=== PATIENT | male | born 1955 | race Caucasian/White ===

== ENCOUNTER 2019-11-17 13:20 | Inpatient (IN) | payer OTHER ==
--- NOTE | 2019-11-17 13:33 | PDOC ---
Rapid Medical Evaluation Time Seen by Provider: 11/17/19 13:29 Medical Evaluation: Allergies Allergy/AdvReac Type Severity Reaction Status Date / Time No Known Drug Allergies Allergy Verified 09/05/17 09:17 11/17/19 13:29 HPI: 64 year old male with pmhx of [place] CHF DM presenting from PCP to be admitted for IV lasix for CHF exacerbation. Pt complaining of SOB, abnormal chest XR at PCP PE: RRR CTA A/P: Labs EKG Chest XR Pt to precede to ED for further evaluation and treatment.
[2019-11-17 15:41] LABS: BASO % 1.4 % (0-2.0); EOS % 3.1 % (0-4.5); HEMATOCRIT 34.9 % (35.4-49); HEMOGLOBIN 11.2 GM/dL (11.7-16.9); LYMPH % 20.5 % (8-40); MCH 27.1 pg (25.7-33.7); MEAN CELL VOLUME 84.9 fl (80-96); MEAN PLT VOLUME 7.6 fl (7.5-11.1); MONO % 9.3 % (3.8-10.2); NEUT % 65.7 % (42.8-82.8); PLATELET COUNT 256 K/MM3 (134-434); RBC 4.12 M/mm3 (4.00-5.60); RDW 16.6 % (11.9-15.9); WHITE BLOOD COUNT 7.3 K/mm3 (4.0-10.0)
--- NOTE | 2019-11-17 15:44 | PDOC ---
Documentation entered by Etienne Samuel SCRIBE, acting as scribe for Reina Fair MD. Reina Fair MD: This documentation has been prepared by the taraibe, Etienne Samuel SCRIBE, under my direction and personally reviewed by me in its entirety. I confirm that the documentation accurately reflects all work, treatment, procedures, and medical decision making performed by me. Attending Attestation - Resident Resident Name: Roel Leach - ED Attending Attestation I have performed the following: I have examined & evaluated the patient, The case was reviewed & discussed with the resident, I agree w/resident's findings & plan, Exceptions are as noted - HPI HPI: 11/17/19 16:14 The patient is a 64 year old male with a significant past medical history of Afib (on Warfarin), [place], CHF, HTN, HLD, DM, and lumbar stenosis who presents to the emergency department, sent from PCP, for evaluation of intermittent shortness of breath for the past two years with a worsened episode that began 7 days ago and abnormal chest x ray taken today at PCP. The patient endorses orthopnea and bilateral lower extremity swelling. He notes his shortness of breath is improved with rest. Per PCP, this patient is to be admitted for IV lasix for CHF exacerbation. Allergies: NKDA PCP: Dr. Leonardo - Physicial Exam PE: 11/17/19 15:29 GENERAL: Awake, alert, and fully oriented, in no acute distress HEAD: No signs of trauma EYES: PERRLA, EOMI, sclera anicteric, conjunctiva clear ENT: Auricles normal inspection, hearing grossly normal, nares patent, oropharynx clear without exudates. Moist mucosa NECK: Normal ROM, supple, no lymphadenopathy, JVD, or masses LUNGS: Breath sounds equal, clear to auscultation bilaterally. No wheezes, and no crackles HEART: Regular rate and rhythm, normal S1 and S2, no murmurs, rubs or gallops ABDOMEN: Soft, nontender, normoactive bowel sounds. No guarding, no rebound. No masses EXTREMITIES: Normal range of motion, 4+ pitting edema to BLE. No clubbing or cyanosis. No cords, erythema, or tenderness NEUROLOGICAL: Cranial nerves II through XII grossly intact. Normal speech, normal gait SKIN: Warm, Dry, normal turgor, no rashes or lesions noted. - Medical Decision Making 11/17/19 16:32 Pt presents with CHF exacerbation. D/w Dr. Leonardo prior to patient arrival. Will diurese and plan for admission. Discharge - Discharge Information Problems reviewed: Yes Clinical Impression/Diagnosis: CHF exacerbation Qualifiers: Heart failure type: unspecified Qualified Code(s): I50.9 - Heart failure, unspecified Condition: Stable - Admission Yes - Follow up/Referral Referrals: Jennifer Leonardo MD [Primary Care Provider] - - Patient Discharge Instructions - Post Discharge Activity
[2019-11-17 15:53] LABS: INR 3.42 (0.83-1.09); PROTHROMBIN TIME (PATIENT) 40.9 SEC (9.7-13.0)
[2019-11-17 15:56] LABS: ACTIVATED PTT 47.6 SECONDS (25.2-36.5)
[2019-11-17 16:10] LABS: ALBUMIN 3.2 g/dl (3.4-5.0); ALK PHOS 107 U/L (45-117); ANION GAP 6 MMOL/L (8-16); BILIRUBIN,TOTAL 0.7 mg/dL (0.2-1); BLOOD UREA NITROGEN 15.4 mg/dL (7-18); CALCIUM 8.2 mg/dL (8.5-10.1); CHLORIDE 104 mmol/L (98-107); CO2 29 mmol/L (21-32); CREATININE 1.3 mg/dL (0.55-1.3); GLUCOSE,RANDOM 165 mg/dL (74-106); N-TERMINAL BNP 910.3 pg/ml (5-125); POTASSIUM 3.6 mmol/L (3.5-5.1); SGOT/AST 16 U/L (15-37); SGPT/ALT 14 U/L (13-61); SODIUM 140 mmol/L (136-145); TOT PROT 7.9 g/dl (6.4-8.2)
--- NOTE | 2019-11-17 16:14 | PDOC ---
History of Present Illness - General Chief Complaint: Shortness of Breath Stated Complaint: SENT BY PCP Time Seen by Provider: 11/17/19 13:29 - History of Present Illness Initial Comments: HPI 64 yo M with PMH of [place] (in 2015, s/p stent), CHF, HTN, HLD, NIDDM, AFib (since 2008, on warfarin), and lumbar stenosis presenting to the ED from his PCP's office for evaluation of worsening SOB on exertion and bilateral lower extremity swelling over the past week. CXR at PCP's office showed congestive changes. He has had an echocardiogram done this year but does not recall the results. He reports that the SOB on exertion and lower extremity edema has been intermittently present for the last 2 years. Also endorses orthopnea. Denies SOB at rest, chest pain, PND, cough, abdominal pain, fever, chills, nausea, vomiting, diarrhea, constipation, and urinary changes. PMHX: as in HPI PSHX: as in HPI Meds: -lisonopril 40 mg daily -bumetanide 2 mg bid -metformin 500 mg daily -warfarin 5 mg + 1 mg daily -metoprolol succinate er 100 mg daily -nitroglycerin 0.4 mg SL prn Allergies: NKDA Tob: denies Etoh: denies Rec drugs: denies PCP: Dr. Malissa ROBLEDO GENERAL/CONSTITUTIONAL: No fever or chills. No weakness. HEAD, EYES, EARS, NOSE AND THROAT: No change in vision. No ear pain or discharge. No sore throat. CARDIOVASCULAR: No chest pain. No SOB at rest. + SOB on exertion. RESPIRATORY: No cough, wheezing, or hemoptysis. GASTROINTESTINAL: No nausea, vomiting, diarrhea or constipation. GENITOURINARY: No dysuria, frequency, or change in urination. MUSCULOSKELETAL: No joint or muscle swelling or pain. No neck pain. + Chronic lower back pain. SKIN: No rash NEUROLOGIC: No headache, vertigo, loss of consciousness, or change in stre ngth/sensation. ENDOCRINE: No increased thirst. No abnormal weight change HEMATOLOGIC/LYMPHATIC: No anemia, easy bleeding, or history of blood clots. ALLERGIC/IMMUNOLOGIC: No hives or skin allergy. PE GENERAL: Awake, alert, and fully oriented, in no acute distress. Breathing comfortably on RA. HEAD: No signs of trauma, normocephalic, atraumatic EYES: PERRLA, EOMI, sclera anicteric, conjunctiva clear ENT: Auricles normal inspection, hearing grossly normal, nares patent, oropharynx clear without exudates. Moist mucus membranes. NECK: Normal ROM, supple, no lymphadenopathy, JVD, or masses LUNGS: No distress, speaks full sentences; crackles at bilateral lung bases. No wheezing. No accessory muscle use. HEART: irregular rate and regular rhythm, normal S1 and S2, no murmurs, rubs or gallops, peripheral pulses normal and equal bilaterally. ABDOMEN: Soft, nontender, normoactive bowel sounds. No guarding, no rebound. No masses EXTREMITIES : Normal inspection, moving all extremities equally and spontaneously. 2+ pitting edema of b/l lower extremities. NEUROLOGICAL: Normal speech, normal gait, no focal sensorimotor deficits SKIN: Warm, Dry, normal turgor, no rashes or lesions noted 11/17/19 16:18 11/17/19 16:22 11/17/19 16:27 11/17/19 16:51 11/17/19 16:58 11/17/19 17:37 11/17/19 19:10 Past History - Medical History Allergies/Adverse Reactions: Allergies Allergy/AdvReac Type Severity Reaction Status Date / Time No Known Drug Allergies Allergy Verified 11/17/19 13:29 Home Medications: Ambulatory Orders Amlodipine Besylate/Benazepril [Lotrel 5-20 mg Capsule] 1 cap PO DAILY 09/04/17 Oxycodone HCl/Acetaminophen 1 tab PO PRN PRN MDD 3 09/04/17 Toprol Xl 25 mg PO DAILY 09/04/17 Warfarin Sodium [Coumadin] 6 mg PO DAILY 09/04/17 Anemia: No Asthma: No Cancer: No Cardiac Disorders: Yes ([place] 2013) CVA: No COPD: No CHF: Yes Dementia: No Diabetes: Yes (DIET CONTROL) GI Disorders: No Disorders: No HTN: Yes Hypercholesterolemia: No Liver Disease: No Seizures: No Thyroid Disease: No - Surgical History Abdominal Surgery: Yes (RECTAL FISSURE) Appendectomy: No Cardiac Surgery: Yes (CARDIAC STENT 2014) Cholecystectomy: No Lung Surgery: No Neurologic Surgery: No Orthopedic Surgery: No - Immunization History Immunization Up to Date: Yes - Psycho-Social/Smoking History Smoking History: Former smoker Have you smoked in the past 12 months: No If you are a former smoker, when did you quit?: 2013 Information on smoking cessation initiated: No - Substance Abuse Hx (Audit-C & DAST Scrn) How often the patient has a drink containing alcohol: Never Score: In Men: 4 or > Positive; In Women: 3 or > Positive: 0 Screen Result (Pos requires Nsg. Audit-10AR): Negative In the last yr the pt used illegal drug/Rx for NonMed reason: No Score: Yes response is considered Positive: 0 Screen Result (Positive result requires Nsg. DAST-10): Negative *Physical Exam - Vital Signs Last Vital Signs Temp Pulse Resp BP Pulse Ox 98.7 F 78 19 127/65 96 11/17/19 13:30 11/17/19 15:16 11/17/19 15:16 11/17/19 15:16 11/17/19 15:16 ED Treatment Course - LABORATORY CBC & Chemistry Diagram: 11/17/19 15:10 11/17/19 15:10 - ADDITIONAL ORDERS Additional order review: Laboratory Results 11/17/19 11/17/19 15:10 15:10 PT with INR 40.90 H INR 3.42 H PTT (Actin FS) 47.6 H Sodium 140 Potassium 3.6 Chloride 104 Carbon Dioxide 29 Anion Gap 6 L BUN 15.4 Creatinine 1.3 Est GFR (CKD-EPI)AfAm 66.83 Est GFR (CKD-EPI)NonAf 57.66 Random Glucose 165 H Calcium 8.2 L Total Bilirubin 0.7 AST 16 ALT 14 Alkaline Phosphatase 107 Creatine Kinase 102 Troponin I < 0.02 B-Natriuretic Peptide 910.3 H Total Protein 7.9 Albumin 3.2 L 11/17/19 15:10 RBC 4.12 MCV 84.9 MCHC 32.0 RDW 16.6 H MPV 7.6 Neutrophils % 65.7 Lymphocytes % 20.5 Monocytes % 9.3 Eosinophils % 3.1 Basophils % 1.4 Medical Decision Making - Medical Decision Making MDM: 64 yo M with PMH of [place] (in 2014, s/p stent), CHF, HTN, HLD, NIDDM, AFib (since 2008, on warfarin), and lumbar stenosis presenting to the ED from his PCP's office for evaluation of worsening SOB on exertion and bilateral lower extremity swelling over the past week. Pt being admitted for likely CHF exacerbation. CBC, CMP ordered. Glucose 165. BNP 910.3 CXR showing enlarged heart, folded aorta, congestive changes, and possible early RUL infiltrate. IV lasix 40 Plan to admit. 11/17/19 22:28 Discharge - Discharge Information Problems reviewed: Yes Clinical Impression/Diagnosis: CHF exacerbation Qualifiers: Heart failure type: unspecified Qualified Code(s): I50.9 - Heart failure, un specified - Admission Yes - Follow up/Referral Referrals: Jennifer Leonardo MD [Primary Care Provider] - - Patient Discharge Instructions - Post Discharge Activity
[2019-11-17] MEDS ORDERED: FUROSEMIDE 40 MG/4 ML INJECTABLE VIAL IVPUSH ONE (16:16)
[2019-11-17] MEDS ORDERED: FUROSEMIDE 40 MG/4 ML INJECTABLE VIAL ONE (17:28)
[2019-11-17 20:17] LABS: PH,URINE 6.5 (5.0-8.0); URINE APPEARANCE CLEAR; URINE BILIRUBIN NEGATIVE (NEGATIVE); URINE COLOR YELLOW; URINE GLUCOSE (UA) NEGATIVE (NEGATIVE); URINE KETONE NEGATIVE (NEGATIVE); URINE LEUK ESTERASE NEGATIVE (NEGATIVE); URINE NITRITE NEGATIVE (NEGATIVE); URINE PROTEIN NEGATIVE (NEGATIVE)
[2019-11-17] MEDS ORDERED: ACETAMINOPHEN PO PRN (21:31)
[2019-11-17] MEDS ORDERED: OXYCODONE HCL PO PRN (21:31)
[2019-11-17] MEDS ORDERED: ACETAMINOPHEN 500 MG TABLET (FP) PO PRN (21:33)
[2019-11-17] MEDS ORDERED: HEPARIN NA (PORCINE) 5,000 UNITS/ML 1ML VIAL SQ SCH (22:00)
[2019-11-17] MEDS ORDERED: PIPERACILLIN/TAZOBACTAM 3.375 GM VIAL IVPB ONE (23:52)
[2019-11-17] MEDS ORDERED: DEXTROSE 5%-WATER - 50 ML IVPB ONE (23:52)
[2019-11-18] MEDS: PIPERACILLIN/TAZOB 3.375 GM 3.375 GM in DEXTROSE 5%-WATER - 50 ML IVPB SCH ×6 (00:02→11:40)
[2019-11-18] MEDS ORDERED: PIPERACILLIN/TAZOBACTAM 3.375 GM VIAL IVPB ONE ×3 (04:11→10:10)
[2019-11-18] MEDS ORDERED: DEXTROSE 5%-WATER - 50 ML IVPB ONE ×3 (04:11→10:10)
--- NOTE | 2019-11-18 08:02 | HP ---
Admitting History and Physical - Primary Care Physician PCP: Jennifer Leonardo - Admission Chief Complaint: sent from my office for dyspnea, leg edema decompensted chf History of Present Illness: 64 yo M with PMH of [place] (in 2014, s/p stent), CHF, HTN, HLD, NIDDM, AFib (since 2008, on warfarin), and lumbar stenosis presenting to the ED from his PCP's office for evaluation of worsening SOB on exertion and bilateral lower extremity swelling over the past week. CXR at PCP's office showed congestive changes. He has had an echocardiogram done this year but does not recall the results. He reports that the SOB on exertion and lower extremity edema has been inte rmittently present for the last 2 years. Also endorses orthopnea. Denies SOB at rest, chest pain, PND, cough, abdominal pain, fever, chills, nausea, vomiting, diarrhea, constipation, and urinary changes. History Source: Medical Record Limitations to Obtaining History: Clinical Condition - Smoking History Smoking history: Former smoker Have you smoked in the past 12 months: No If you are a former smoker, when did you quit?: 2014 - Alcohol/Substance Use Hx Alcohol Use: No Home Medications - Allergies Allergies/Adverse Reactions: Allergies Allergy/AdvReac Type Severity Reaction Status Date / Time No Known Drug Allergies Allergy Verified 11/17/19 13:29 - Home Medications Home Medications: Ambulatory Orders Amlodipine Besylate/Benazepril [Lotrel 5-20 mg Capsule] 1 cap PO DAILY 09/04/17 Oxycodone HCl/Acetaminophen 1 tab PO PRN PRN MDD 3 09/04/17 Toprol Xl 25 mg PO DAILY 09/04/17 Warfarin Sodium [Coumadin] 6 mg PO DAILY 09/04/17 Review of Systems - Review of Systems Constitutional: reports: Weakness Cardiovascular: reports: Shortness of Breath Respiratory: reports: SOB Gastrointestinal: reports: No Symptoms Musculoskeletal: reports: Back Pain Neurological: reports: Pre-Existing Deficit Physical Examination Vital Signs: Vital Signs Temperature 98.4 F 11/18/19 06:26 Pulse Rate 82 11/18/19 06:26 Respiratory Rate 20 11/18/19 06:26 Blood Pressure 159/85 11/18/19 06:26 O2 Sat by Pulse Oximetry (%) 92 L 11/18/19 06:26 Constitutional: Yes: Moderate Distress Cardiovascular: Yes: Pulse Irregular Respiratory: Yes: Diminished Gastrointestinal: Yes: Soft, Abdomen, Obese Musculoskeletal: Yes: Back Pain Edema: Yes Edema: LLE: 2+, RLE: 2+ Integumentary: Yes: Erythema Neurological: Yes: Pre-Existing Deficit Psychiatric: Yes: WNL Labs: CBC, BMP 11/17/19 15:10 11/17/19 15:10 Imaging - Results Chest X-ray: Report Reviewed Problem List - Problems (1) Atrial fibrillation Code(s): I48.91 - UNSPECIFIED ATRIAL FIBRILLATION (2) Dyspnea Code(s): R06.00 - DYSPNEA, UNSPECIFIED (3) Obesity (BMI 30-39.9) Code(s): E66.9 - OBESITY, UNSPECIFIED (4) CAD (coronary artery disease) Code(s): I25.10 - ATHSCL HEART DISEASE OF CIRCLE CORONARY ARTERY W/O ANG PCTRS (5) Anemia Code(s): D64.9 - ANEMIA, UNSPECIFIED (6) H/O: GI bleed Code(s): Z87.19 - PERSONAL HISTORY OF OTHER DISEASES OF THE DIGESTIVE SYSTEM (7) CHF exacerbation Code(s): I50.9 - HEART FAILURE, UNSPECIFIED Qualifiers: Heart failure type: unspecified Qualified Code(s): I50.9 - Heart failure, unspecified Assessment/Plan DIURESIS AND MONITOR LABS CARDIOLOGY EVAL CXR REVIEWED CARDIOLOGY AND PULMONARY EVAL AC FOR AFIB PULM EVAL OOB TO CHAIR
[2019-11-18 08:46] LABS: BASO % 1.3 % (0-2.0); EOS % 3.7 % (0-4.5); HEMATOCRIT 34.1 % (35.4-49); INR 3.51 (0.83-1.09); MCH 27.1 pg (25.7-33.7); MCHC 32.3 g/dl (32.0-35.9); MEAN CELL VOLUME 83.9 fl (80-96); MEAN PLT VOLUME 7.7 fl (7.5-11.1); MONO % 8.5 % (3.8-10.2); NEUT % 66.5 % (42.8-82.8); PLATELET COUNT 247 K/MM3 (134-434); RBC 4.06 M/mm3 (4.00-5.60); RDW 16.5 % (11.9-15.9); WHITE BLOOD COUNT 7.3 K/mm3 (4.0-10.0)
[2019-11-18 09:11] LABS: ALBUMIN 3.1 g/dl (3.4-5.0); BILIRUBIN,TOTAL 0.9 mg/dL (0.2-1); CALCIUM 7.9 mg/dL (8.5-10.1); CREATININE 1.1 mg/dL (0.55-1.3); MAGNESIUM 1.8 mg/dL (1.8-2.4); POTASSIUM 3.6 mmol/L (3.5-5.1); TOT PROT 7.3 g/dl (6.4-8.2)
--- NOTE | 2019-11-18 10:06 | EKG ---
Test Reason : Blood Pressure : / mmHG Vent. Rate : 062 BPM Atrial Rate : 072 BPM P-R Int : 000 ms QRS Dur : 102 ms QT Int : 446 ms P-R-T Axes : 000 001 -54 degrees QTc Int : 452 ms ATRIAL FIBRILLATION LOW VOLTAGE QRS INCOMPLETE RIGHT BUNDLE BRANCH BLOCK SEPTAL INFARCT , AGE UNDETERMINED T WAVE ABNORMALITY, CONSIDER INFERIOR ISCHEMIA ABNORMAL ECG NO PREVIOUS ECGS AVAILABLE Confirmed by MD Zander, Ganga ([id number]) on 11/18/2019 10:05:45 AM Referred By: Confirmed By:Ganga Fermin MD
[2019-11-18] MEDS: LIDOCAINE 5% TOPICAL PATCH TP SCH (10:15)
[2019-11-18] MEDS: FUROSEMIDE 40 MG/4 ML INJECTABLE VIAL IVPUSH SCH (10:16)
[2019-11-18] MEDS: amLODIPine BESYLATE 5 MG TABLET (FP) PO SCH (10:16)
[2019-11-18] MEDS: metoPROLOL SUCCINATE 25 MG TAB.SR.24H (FP) PO SCH (10:16)
[2019-11-18] MEDS: VALSARTAN 160 MG TABLET (UD) PO SCH (10:17)
--- NOTE | 2019-11-18 10:44 | CONSULT ---
Consultation: REQUESTING PROVIDER: Dr. Renny Leonardo CONSULT REQUEST: We have been asked to medically evaluate this patient for volume overload. HISTORY OF PRESENT ILLNESS: Mr. Hoyt is a 64M w a h/o CHF, HTN, HLD, Afib on coumadin, admitted to the hospital for shortness of breath and two weeks of bilateral lower extremity edema. The patient endorses a 2 pillow orthopnea at night and lower extremity swelling that has been "on and off" for the past 2 years. He does not endorse any acute overnight events and is laying comfortably at an incline. The patient reports shortness of breath with mild exertion. He denies chest pain, back pain, cough, dyspnea, hesitancy upon urination, hematuria, CVA tenderness, flank pain, or dysuria. REVIEW OF SYSTEMS: CONSTITUTIONAL: Absent: fever, chills, diaphoresis, generalized weakness, malaise, loss of appetite, weight change CARDIOVASCULAR: peripheral edema Absent: chest pain, syncope, palpitations, irregular heart rate, lightheadedness, RESPIRATORY: shortness of breath, dyspnea with exertion Absent: cough,, orthopnea, wheezing, stridor, hemoptysis GENITOURINARY: Absent: dysuria, frequency, urgency, hesitancy, hematuria, flank pain, genital pain PHYSICAL EXAMINATION Vital Signs - 24 hr 11/17/19 11/17/19 11/17/19 13:30 14:15 15:16 Temperature 98.7 F Pulse Rate 76 Pulse Rate [ 78 Apical] Respiratory 18 19 Rate Blood Pressure 121/57 L Blood Pressure 127/65 [Right Arm] O2 Sat by Pulse 100 96 96 Oximetry (%) 11/17/19 11/17/19 11/18/19 21:00 23:17 06:26 Temperature 98.6 F 98.4 F Pulse Rate 73 82 Pulse Rate [ Apical] Respiratory 20 20 Rate Blood Pressure 134/66 159/85 Blood Pressure [Right Arm] O2 Sat by Pulse 91 L 91 L 92 L Oximetry (%) GENERAL: Awake, alert, and fully oriented, in no acute distress. LUNGS: Breath sounds equal, clear to auscultation bilaterally. No wheezes, and no crackles. No accessory muscle use. HEART: Regular rate and rhythm, normal S1 and S2 without murmur, rub or gallop. ABDOMEN: Soft, nontender, not distended, normoactive bowel sounds, no guarding, no rebound, no masses. No hepatomegaly or splenomegaly. UPPER EXTREMITIES: 2+ pulses, warm, well-perfused. No cyanosis. No clubbing. Cap refill <2 seconds. No peripheral edema. LOWER EXTREMITIES: 3+ pitting edema bilateral to the knees Laboratory Results - last 24 hr 11/17/19 11/17/19 11/17/19 15:10 15:10 15:10 WBC 7.3 RBC 4.12 Hgb 11.2 L Hct 34.9 L MCV 84.9 MCH 27.1 MCHC 32.0 RDW 16.6 H Plt Count 256 D MPV 7.6 Absolute Neuts (auto) 4.8 Neutrophils % 65.7 Lymphocytes % 20.5 Monocytes % 9.3 Eosinophils % 3.1 Basophils % 1.4 Nucleated RBC % 0 PT with INR 40.90 H INR 3.42 H PTT (Actin FS) 47.6 H Sodium 140 Potassium 3.6 Chloride 104 Carbon Dioxide 29 Anion Gap 6 L BUN 15.4 Creatinine 1.3 Est GFR (CKD-EPI)AfAm 66.83 Est GFR (CKD-EPI)NonAf 57.66 Random Glucose 165 H Hemoglobin A1c % Calcium 8.2 L Magnesium Total Bilirubin 0.7 AST 16 ALT 14 Alkaline Phosphatase 107 Creatine Kinase 102 Troponin I < 0.02 B-Natriuretic Peptide 910.3 H Total Protein 7.9 Albumin 3.2 L Urine Color Urine Appearance Urine pH Ur Specific [place] Urine Protein Urine Glucose (UA) Urine Ketones Urine Blood Urine Nitrite Urine Bilirubin Urine Urobilinogen Ur Leukocyte Esterase 11/17/19 11/18/19 11/18/19 20:06 08:00 08:00 WBC 7.3 RBC 4.06 Hgb 11.0 L Hct 34.1 L MCV 83.9 MCH 27.1 MCHC 32.3 RDW 16.5 H Plt Count 247 MPV 7.7 Absolute Neuts (auto) 4.8 Neutrophils % 66.5 Lymphocytes % 20.0 Monocytes % 8.5 Eosinophils % 3.7 Basophils % 1.3 Nucleated RBC % 0 PT with INR 42.00 H INR 3.51 H PTT (Actin FS) Sodium Potassium Chloride Carbon Dioxide Anion Gap BUN Creatinine Est GFR (CKD-EPI)AfAm Est GFR (CKD-EPI)NonAf Random Glucose Hemoglobin A1c % Calcium Magnesium Total Bilirubin AST ALT Alkaline Phosphatase Creatine Kinase Troponin I B-Natriuretic Peptide Total Protein Albumin Urine Color Yellow Urine Appearance Clear Urine pH 6.5 Ur Specific [place] 1.008 L Urine Protein Negative Urine Glucose (UA) Negative Urine Ketones Negative Urine Blood Negative Urine Nitrite Negative Urine Bilirubin Negative Urine Urobilinogen 1.0 Ur Leukocyte Esterase Negative 11/18/19 11/18/19 08:00 08:00 WBC RBC Hgb Hct MCV MCH MCHC RDW Plt Count MPV Absolute Neuts (auto) Neutrophils % Lymphocytes % Monocytes % Eosinophils % Basophils % Nucleated RBC % PT with INR INR PTT (Actin FS) Sodium 139 Potassium 3.6 Chloride 104 Carbon Dioxide 26 Anion Gap 9 BUN 15.0 Creatinine 1.1 Est GFR (CKD-EPI)AfAm 81.79 Est GFR (CKD-EPI)NonAf 70.57 Random Glucose 118 H Hemoglobin A1c % 6.5 H Calcium 7.9 L Magnesium 1.8 Total Bilirubin 0.9 AST 19 ALT 15 Alkaline Phosphatase 96 Creatine Kinase Troponin I B-Natriuretic Peptide Total Protein 7.3 Albumin 3.1 L Urine Color Urine Appearance Urine pH Ur Specific [place] Urine Protein Urine Glucose (UA) Urine Ketones Urine Blood Urine Nitrite Urine Bilirubin Urine Urobilinogen Ur Leukocyte Esterase Active Medications Generic Name Dose Route Start Last Admin Trade Name Freq PRN Reason Stop Dose Admin Acetaminophen 1,000 mg 11/17/19 21:33 Tylenol - PO Q6H PRN PAIN LEVEL 1-5 Amlodipine Besylate 5 mg 11/18/19 10:00 11/18/19 10:16 Norvasc - PO 5 mg DAILY RAMÍREZ Administration Furosemide 40 mg 11/18/19 10:00 11/18/19 10:16 Lasix Injection - IVPUSH 40 mg DAILY RAMÍREZ Administration Piperacillin Sod/Tazobactam 50 mls @ 100 mls/hr 11/17/19 21:45 Sod 3.375 gm/ Dextrose IVPB Q8H-IV RAMÍREZ Protocol Piperacillin Sod/Tazobactam 50 mls @ 100 mls/hr 11/17/19 22:30 11/18/19 10:15 Sod 3.375 gm/ Dextrose IVPB 11/18/19 18:29 100 mls/hr Q8H-IV RAMÍREZ Administration Protocol Lidocaine 1 patch 11/18/19 10:00 11/18/19 10:15 Lidoderm Patch - TP 1 patch DAILY RAMÍREZ Administration Metoprolol Succinate 25 mg 11/18/19 10:00 11/18/19 10:16 Toprol Xl - PO 25 mg DAILY [facility] Administration Miscellaneous 1 each 11/18/19 22:00 Lidoderm Patch Removal MC DAILY@2200 [facility] Oxycodone HCl 5 mg 11/17/19 21:33 Roxicodone - PO Q4H PRN PAIN LEVEL 6-10 Valsartan 160 mg 11/18/19 10:00 11/18/19 10:17 Diovan - PO 160 mg DAILY [facility] Administration Warfarin Sodium 6 mg 11/18/19 18:00 Coumadin - PO DAILY@1800 [facility] ASSESSMENT/PLAN: Mr. Hoyt is a 64M w a h/o CHF, HTN, HLD, Afib on coumadin, admitted to the hospital for shortness of breath and two weeks of bilateral lower extremity edema. #acute on chronic CHF - likely secondary to volume overload - patient placed on 40mg IV lasix - continue to monitor kidney fx (currently wnl) and lytes - strict I/O's - daily weights - fluid restriction - sodium restriction #HTN - continue home dose of amlodipine - continue home dose of metoprolol succinate - monitor volume status on IV lasix after 24 hrs and will adjust accordingly Dispo: We will continue to follow the patient. Thank you for this consultative opportunity. Visit type - Emergency Visit Emergency Visit: Yes ED Registration Date: 11/17/19 Care time: The patient presented to the Emergency Department on the above date and was hospitalized for further evaluation of their emergent condition. - New Patient This patient is new to me today: Yes Date on this admission: 11/18/19 - Critical Care Critical Care patient: No ATTENDING PHYSICIAN STATEMENT I saw and evaluated the patient. I reviewed the resident's note and discussed the case with the resident. I agree with the resident's findings and plan as documented. SUBJECTIVE: OBJECTIVE: ASSESSMENT AND PLAN:
--- NOTE | 2019-11-18 11:26 | PN ---
Progress Note (short form) - Note Progress Note: ID CONSULT DICTATED DECOMPENSATED CHF DOUBT PNEUMONIA OBSERVE OFF ANTIBIOTICS
--- NOTE | 2019-11-18 11:39 | PN ---
Teaching Attending Note Name of Resident: Akhil Lester (Nephrology) ATTENDING PHYSICIAN STATEMENT I saw and evaluated the patient. I reviewed the resident's note and discussed the case with the resident. I agree with the resident's findings and plan as documented. Renal Pt is a 64 year old male with pmhx of chf, htn, hld, dm, a-fib and lumbar stenosis who presents with lower ext edema and shortness of breath. he denies nsaid use. He is on diuretics at home. He denies history of ckd. I was called to evaluate him for fluid overload. pmhx chf afib dm htn nkda social hx denies family hx non contrib ros lower ext edema Laboratory Tests 11/17/19 11/17/19 11/17/19 15:10 20:06 20:06 Creatinine 1.3 Hemoglobin A1c % Ur Specific [place] 1.008 L Urine Protein Negative Urine Blood Negative COVID-19 ([facility]) Pending 11/18/19 11/18/19 08:00 08:00 Creatinine 1.1 Hemoglobin A1c % 6.5 H Ur Specific [place] Urine Protein Urine Blood COVID-19 ([facility]) Current Medications Generic Name Dose Route Start Last Admin Trade Name Freq PRN Reason Stop Dose Admin Acetaminophen 1,000 mg 11/17/19 21:33 Tylenol - PO Q6H PRN PAIN LEVEL 1-5 Amlodipine Besylate 5 mg 11/18/19 10:00 11/18/19 10:16 Norvasc - PO 5 mg DAILY RAMÍREZ Administration Furosemide 40 mg 11/18/19 10:00 11/18/19 10:16 Lasix Injection - IVPUSH 40 mg DAILY RAMÍREZ Administration Lidocaine 1 patch 11/18/19 10:00 11/18/19 10:15 Lidoderm Patch - TP 1 patch DAILY RAMÍREZ Administration Metoprolol Succinate 25 mg 11/18/19 10:00 11/18/19 10:16 Toprol Xl - PO 25 mg DAILY RAMÍREZ Administration Miscellaneous 1 each 11/18/19 22:00 Lidoderm Patch Removal MC DAILY@2200 [facility] Oxycodone HCl 5 mg 11/17/19 21:33 Roxicodone - PO Q4H PRN PAIN LEVEL 6-10 Valsartan 160 mg 11/18/19 10:00 11/18/19 10:17 Diovan - PO 160 mg DAILY RAMÍREZ Administration Warfarin Sodium 6 mg 11/18/19 18:00 Coumadin - PO DAILY@1800 RAMÍREZ cardio s1s2 pulm clear gi soft, obese ext plus 2 edema neuro awake and alert skin neg rash CXR congestion Impression 1. fluid overload 2. chf 3. dm 4. a-fib 5. 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
--- NOTE | 2019-11-18 11:49 | CON.CARD ---
Consult Consult Specialty:: Cardiology Reason for Consultation:: CHF - History of Present Illness Chief Complaint: DAVIS. Lower extremity edema History of Present Illness: This is a 64 year old male with a PMH of CHF, HTN, HLD, NIDDM, AFib (since 2008, on warfarin), and know CAD. He had an PA in 2014 and received a coronary stent. He presents now with about one week of progressive DAVIS, orthopnea, and worsening lower extremity edema. CXR 11/17/2019 shows congestive changes and a possible right upper lobe inflitrate. EKG 11/17/2019 AFIB at 62 BPM with low QRS voltage, incomplete RBBB, and NSSTTW changes. Echocardiogram 11/18/2019 Lawanda LV size and function. Normal RV size and function. Mild MR. EF 65% Troponin I < 0.02 BNP 910 - Alcohol/Substance Use Hx Alcohol Use: No - Smoking History Smoking history: Former smoker Have you smoked in the past 12 months: No If you are a former smoker, when did you quit?: 2013 Home Medications - Allergies Allergies/Adverse Reactions: Allergies Allergy/AdvReac Type Severity Reaction Status Date / Time No Known Drug Allergies Allergy Verified 11/17/19 13:29 - Home Medications Home Medications: Ambulatory Orders Amlodipine Besylate/Benazepril [Lotrel 5-20 mg Capsule] 1 cap PO DAILY 09/04/17 Oxycodone HCl/Acetaminophen 1 tab PO PRN PRN MDD 3 09/04/17 Toprol Xl 25 mg PO DAILY 09/04/17 Warfarin Sodium [Coumadin] 6 mg PO DAILY 09/04/17 Vital Signs: Vital Signs Temperature 98.4 F 11/18/19 06:26 Pulse Rate 82 11/18/19 06:26 Respiratory Rate 20 11/18/19 06:26 Blood Pressure 159/85 11/18/19 06:26 O2 Sat by Pulse Oximetry (%) 92 L 11/18/19 06:26 Constitutional: Yes: No Distress HENT: Yes: WNL Neck: Yes: WNL Respiratory: Yes: Dullness (Bilateral crackles) Gastrointestinal: Yes: Soft Cardiovascular: Yes: Pulse Irregular Heart Sounds: Yes: S1, S2 Edema: LLE: 2+, RLE: 2+ Neurological: Yes: Alert, Oriented - Other Data Labs, Other Data: CBC, BMP 11/18/19 08:00 11/18/19 08:00 INR, PTT INR 3.51 (0.83-1.09) H 11/18/19 08:00 Troponin, BNP 11/17/19 15:10 Troponin I < 0.02 B-Natriuretic Peptide 910.3 H Troponin, BNP 11/17/19 15:10 Troponin I < 0.02 B-Natriuretic Peptide 910.3 H Assessment/Plan CHF Echocardiogram Normal LV function, normal RV function, EF 65% Diastolic, acute on chronic Lasix IVSS 40 mg, would give BID Follow daily I's/O's/Wt's/Lytes AFIB Rate controlled with metoprolol Continue Coumadin therapy to an INR of 2 - 3 HTN Continue: Amlodipine Besylate (Norvasc -) 5 mg PO DAILY Valsartan (Diovan -) 160 mg PO DAILY Metoprolol Succinate (Toprol Xl -) 25 mg PO DAILY Past CAD Would send a lipid profile He would likely benefit from statin therapy Would not start aspirin at this time given AC Continue Metoprolol Succinate (Toprol Xl -) 25 mg PO DAILY
--- NOTE | 2019-11-18 12:14 | CONS ---
INFECTIOUS DISEASE CONSULTATION DATE OF CONSULTATION: DATE OF DICTATION: 11/18/2019 HISTORY: The patient is a 64-year-old male with a history of coronary artery disease, congestive heart failure, atrial fibrillation, evaluated for possible pneumonia. The patient reports chronic shortness of breath dating back 1 to 2 years. He was admitted to the hospital on November 17, 2019, with a 1 week history of worsening shortness of breath and increasing lower extremity edema. A chest x-ray done on admission showed congestion with possible right upper lobe infiltrate. The patient is presently out of bed in chair. He is in no acute respiratory distress at rest. He denies cough, sputum production, hemoptysis. No recent fever or chills. He denies any ill contacts. No recent travel. He was in [place], returning in July. No known contact with COVID-19. He is a nonsmoker. He is retired, lives at home with his family who are well with no respiratory tract symptoms. PAST MEDICAL HISTORY: Positive for coronary artery disease, myocardial infarction, diabetes mellitus, congestive heart failure, atrial fibrillation, hypertension, hyperlipidemia. ALLERGIES: No known allergies. MEDICATIONS: Include Zosyn, Coumadin, Norvasc, Toprol, Diovan, oxycodone, Lasix. SOCIAL HISTORY: As per HPI. SYSTEMS REVIEW: Neurologic: No loss of consciousness, seizure activity, focal weakness. Cardiac: Negative chest pain or palpitations. Respiratory: As per HPI. Gastrointestinal: Negative vomiting or diarrhea. Genitourinary: Negative for urinary tract infection. LABORATORY DATA: White count 7.3, hematocrit 34.1, platelets 247. Creatinine 1.1. Urine analysis negative. Chest x-ray shows bilateral pulmonary vascular congestion. No dense infiltrate noted. PHYSICAL EXAMINATION: General: He is out of bed to chair. He is in no acute distress. Vital Signs: Temperature 98.4, blood pressure 159/85, pulse 82 regular, respirations 20 per minute, O2 saturation 92% on room air. HEENT: Sclerae are anicteric. Heart: Sounds S1, S2, irregular. Lungs: Clear. No rhonchi, rales or wheezing. Abdomen: Soft, obese, nontender. Extremities: Lower extremity edema 3+ bilaterally. IMPRESSION: 1. Decompensated congestive heart failure. 2. Doubt pneumonia. Clinical presentation consistent with a decompensated CHF; low likelihood of pneumonia. Would observe off antibiotic therapy. Should his clinical condition change, would obtain CAT scan of the chest to further assess lung parenchyma. Await COVID-19 PCR. Thank you for the kind referral. ANDREW GUZMAN M.D. [id number]
--- NOTE | 2019-11-18 12:49 | ECHO ---
Version: 1 Name: GERDA YOON Exam: Adult Echocardiogram Study Date: 11/18/2019, 11:40 AM Age: 64 Years MMode/2D Measurements & Calculations IVSd: 1.05 cm LVIDs: 3.6 cm LVIDd: 5.4 cm LVPWd: 0.98 cm LAV (MOD-bp): 125.0 ml ACS: 1.60 cm Ao root diam: 3.1 cm LVOT diam: 2.12 cm LA dimension: 5.2 cm Doppler Measurements & Calculations MV E max neeraj: 130.2 cm/sec Med E/e': 19.6 Lat E/e': 8.7 Med Peak E' Neeraj: 6.6 cm/sec Lat Peak E' Neeraj: 14.9 cm/sec Ao max P.6 mmHg SADI(I,D): 2.07 cm Ao mean P.6 mmHg LV V1 mean: 85.5 cm/sec Ao V2 max: 232.1 cm/sec LV V1 mean P.4 mmHg TR max neeraj: 234.5 cm/sec TR max P.3 mmHg Procedure The study was technically limited with all images being suboptimal in quality. Left Ventricle The left ventricular size, thickness and function are normal. Ejection Fraction = 65%. The transmitr al spectral Doppler flow pattern is suggestive of impaired LV relaxation. Right Ventricle The right ventricle is normal in size and function. Atria Normal left and right atrial size and function. Mitral Valve There is mild mitral valve thickening. There is mild mitral regurgitation. Tricuspid Valve The tricuspid valve is not well visualized, but is grossly normal. There is mild tricuspid regurgita tion. Aortic Valve There is moderate aortic sclerosis.;. Mild aortic regurgitation. Pulmonic Valve The pulmonic valve is not well visualized. Great Vessels The aortic root is normal size. Normal aortic arch, descending and ascending aorta. Pericardium/Pleura There is no pericardial effusion. Tech Comments TDS due to body habitus. Summary Statements The study was technically limited with all images being suboptimal in quality. The left ventricular size, thickness and function are normal Ejection Fraction = 65%. The transmitral spectral Doppler flow pattern is suggestive of impaired LV relaxation. The right ventricle is normal in size and function. Normal left and right atrial size and function. There is mild mitral valve thickening. There is mild mitral regurgitation. The tricuspid valve is not well visualized, but is grossly normal. There is mild tricuspid regurgitation. There is moderate aortic sclerosis.; Mild aortic regurgitation. The pulmonic valve is not well visualized. The aortic root is normal size. Normal aortic arch, descending and ascending aorta There is no pericardial effusion. Franklin Waldron 11/18/2019, 12:49 PM Ordering Physician: Anne-Marie Cheung Referring Physician: ANNE-MARIE CHEUNG Performed By: Naomy Alanis
--- NOTE | 2019-11-18 14:55 | PN ---
Progress Note (short form) - Note Progress Note: PULMONARY CONSULTATION DICTATED 11/18/19 IMP DYSPNEA ACUTE ON CHRONIC CHF AFIB ASHD S/P MD,STENT HTN HLD ? RUL NODULE ANEMIA MORBID OBESITY PLAN SUPPLEMENTAL O2 LASIX MONITOR LYTES, CHEST CT DAILY WTS OUTPATIENT PFTS DR AKBAR Problem List - Problems (1) Morbid obesity Code(s): E66.01 - MORBID (SEVERE) OBESITY DUE TO EXCESS CALORIES (2) Anemia Code(s): D64.9 - ANEMIA, UNSPECIFIED (3) Atrial fibrillation Code(s): I48.91 - UNSPECIFIED ATRIAL FIBRILLATION (4) CAD (coronary artery disease) Code(s): I25.10 - ATHSCL HEART DISEASE OF [place] CORONARY ARTERY W/O ANG PCTRS (5) CHF exacerbation Code(s): I50.9 - HEART FAILURE, UNSPECIFIED Qualifiers: Heart failure type: unspecified Qualified Code(s): I50.9 - Heart failure, unspecified (6) Dyspnea Code(s): R06.00 - DYSPNEA, UNSPECIFIED
--- NOTE | 2019-11-18 16:30 | CONS ---
PULMONARY CONSULTATION DATE OF CONSULTATION: 11/18/2019 REFERRING PHYSICIAN: Jennifer Leonardo MD HISTORY: Patient is a 64-year-old male, past medical history of ASHD, status post PA in 2015, status post stent; atrial fibrillation; hypertension; hyperlipidemia; CHF; morbid obesity, admitted to [facility] with complaint of a 2-week history of increasing lower extremity edema and dyspnea on exertion and orthopnea. Patient states for the past couple of years or so he started noticing increasing shortness of breath and dyspnea on exertion. He also has been having increasing lower extremity edema for the past few months and was told that he had lymphedema. He states that for the past couple weeks he had increasing swelling, more swelling than normally as well as increasing shortness of breath. He states that he is able to ambulate on level ground without getting significant dyspnea, but walking up inclines or stairs he gets markedly dyspneic or as well when climb up or carrying packages. He denies any chest pains, palpitations. Denies any cough or hemoptysis. Denies any fevers, weight loss or night sweats. On admission he was evaluated by Cardiology and felt to have [id number] CHF. He was started on IV Lasix with some clinical improvement. PAST MEDICAL HISTORY: Again includes ASHD, status post PA, status post stent, congestive heart failure, hypertension, hyperlipidemia, atrial fibrillation. 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 History of tobacco use approximately a pack per day for greater than 20 years, quit a few years ago. Positive for history of exposure to chemicals or fumes at 911. CURRENT MEDICATIONS: Include Lidoderm patch, Tylenol, Diovan, Coumadin, Toprol, Lasix and Roxicodone. PHYSICAL EXAMINATION: General: Patient is an obese male awake, alert. He is in no acute distress. Vital Signs: He is afebrile. Blood pressure is 137/75. Respiratory rate is 20. O2 saturation is 91% on room air. HEENT: Normocephalic, atraumatic. Neck: Supple. Heart: Irregularly irregular with S1, S2. Chest: Diminished breath sounds bilaterally. Abdomen: Soft. Bowel sounds positive. Extremities: Bilateral lower extremity edema. LABORATORIES: BUN is 15, creatinine 1.1. BNP is 910. INR is 3.51. WBC is 7.3, hemoglobin 11, hematocrit 34.1 and platelet count 247,000. Chest x-ray: Mild congestion, questionable nodular density in the right upper lobe. IMPRESSION: 1. Dyspnea secondary to [id number] congestive heart failure. 2. Atherosclerotic heart disease, status post myocardial infarction, status post stent. 3. Hypertension. 4. Hyperlipidemia. 5. Rule out possible right upper lobe nodule. 6. Morbid obesity. Suggest supplemental O2. Continue Lasix. Daily weights. Monitor electrolytes. Chest CT. Also pulmonary function tests as outpatient. EMILY AKBAR M.D. [id number]
[2019-11-18] MEDS: WARFARIN NA 3 MG TABLET PO SCH ×2 (18:48→19:27)
[2019-11-18] MEDS: LIDOCAINE PATCH REMOVAL MC SCH (21:05)
[2019-11-19 08:07] LABS: INR 2.69 (0.83-1.09); PROTHROMBIN TIME (PATIENT) 32.1 SEC (9.7-13.0)
[2019-11-19 08:48] LABS: BLOOD UREA NITROGEN 16.2 mg/dL (7-18); CALCIUM 8.5 mg/dL (8.5-10.1); MAGNESIUM 2.1 mg/dL (1.8-2.4); POTASSIUM 3.5 mmol/L (3.5-5.1)
--- NOTE | 2019-11-19 09:46 | PN ---
Progress Note, Physician Chief Complaint: AWAKE ALERT FEELING BETTER BREATHING HAS IMPROVED DENIES CHEST PAIN - Current Medication List Current Medications: Active Medications Acetaminophen (Tylenol -) 1,000 mg PO Q6H PRN PRN Reason: PAIN LEVEL 1-5 Amlodipine Besylate (Norvasc -) 5 mg PO DAILY [facility] Last Admin: 11/18/19 10:16 Dose: 5 mg Documented by: Furosemide (Lasix Injection -) 40 mg IVPUSH DAILY [facility] Last Admin: 11/18/19 10:16 Dose: 40 mg Documented by: Lidocaine (Lidoderm Patch -) 1 patch TP DAILY [facility] Last Admin: 11/18/19 10:15 Dose: 1 patch Documented by: Metoprolol Succinate (Toprol Xl -) 25 mg PO DAILY [facility] Last Admin: 11/18/19 10:16 Dose: 25 mg Documented by: Miscellaneous (Lidoderm Patch Removal) 1 each MC DAILY@2200 [facility] Last Admin: 11/18/19 21:05 Dose: 1 each Documented by: Oxycodone HCl (Roxicodone -) 5 mg PO Q4H PRN PRN Reason: PAIN LEVEL 6-10 Valsartan (Diovan -) 160 mg PO DAILY [facility] Last Admin: 11/18/19 10:17 Dose: 160 mg Documented by: Warfarin Sodium (Coumadin -) 6 mg PO DAILY@1800 [facility] Last Admin: 11/18/19 19:27 Dose: Not Given Documented by: - Objective Vital Signs: Vital Signs Temperature 97.4 F L 11/19/19 06:00 Pulse Rate 84 11/19/19 06:00 Respiratory Rate 20 11/19/19 06:00 Blood Pressure 125/79 11/19/19 06:00 O2 Sat by Pulse Oximetry (%) 90 L 11/19/19 06:00 Constitutional: Yes: Mild Distress Cardiovascular: Yes: Pulse Irregular Respiratory: Yes: Diminished Gastrointestinal: Yes: Soft, Abdomen, Obese Genitourinary: Yes: WNL Musculoskeletal: Yes: Back Pain Edema: Yes Edema: LLE: 2+, RLE: 2+ Labs: CBC, BMP 11/18/19 08:00 11/19/19 06:30 INR, PTT INR 2.69 (0.83-1.09) H 11/19/19 06:30 Problem List - Problems (1) Atrial fibrillation Code(s): I48.91 - UNSPECIFIED ATRIAL FIBRILLATION (2) Dyspnea Code(s): R06.00 - DYSPNEA, UNSPECIFIED (3) Obesity (BMI 30-39.9) Code(s): E66.9 - OBESITY, UNSPECIFIED (4) CAD (coronary artery disease) Code(s): I25.10 - ATHSCL HEART DISEASE OF [place] CORONARY ARTERY W/O ANG PCTRS (5) Anemia Code(s): D64.9 - ANEMIA, UNSPECIFIED (6) H/O: GI bleed Code(s): Z87.19 - PERSONAL HISTORY OF OTHER DISEASES OF THE DIGESTIVE SYSTEM (7) CHF exacerbation Code(s): I50.9 - HEART FAILURE, UNSPECIFIED Qualifiers: Heart failure type: unspecified Qualified Code(s): I50.9 - Heart failure, unspecified Assessment/Plan DIURESIS AND MONITOR LABS INCREAD LASIX TO BID CARDIOLOGY EVAL APPRECIATED DAILY WEIGHTS MONITOR RENAL FUNCTION CXR REVIEWED CARDIOLOGY AND PULMONARY EVAL AC FOR AFIB PULM EVAL OOB TO CHAIR
[2019-11-19] MEDS: amLODIPine BESYLATE 5 MG TABLET (FP) PO SCH (10:30)
[2019-11-19] MEDS: FUROSEMIDE 40 MG/4 ML INJECTABLE VIAL IVPUSH SCH (10:30)
[2019-11-19] MEDS: VALSARTAN 160 MG TABLET (UD) PO SCH (10:30)
[2019-11-19] MEDS: metoPROLOL SUCCINATE 25 MG TAB.SR.24H (FP) PO SCH (10:30)
[2019-11-19] MEDS: LIDOCAINE 5% TOPICAL PATCH TP SCH (10:31)
[2019-11-19] MEDS: oxyCODONE HCL 5 MG TABLET PO PRN (11:05)
--- NOTE | 2019-11-19 13:27 | PN ---
Progress Note (short form) - Note Progress Note: PULMONARY States breathing is improving. Legs still swollen. CT chest not read yet but showing patchy RUL infiltrate. No fevers, cough. Vital Signs Period Temp Pulse Resp BP Sys/Anderson Pulse Ox Last 24 Hr 97.4 F-98.7 F 84-89 20-20 125-137/59-79 90-92 Gen: NAD at rest Heart: RRR Lung: scattered rhonchi Abd: soft, nontender Ext: + edema CBC, BMP 11/18/19 08:00 11/19/19 06:30 Active Medications Acetaminophen (Tylenol -) 1,000 mg PO Q6H PRN PRN Reason: PAIN LEVEL 1-5 Amlodipine Besylate (Norvasc -) 5 mg PO DAILY [facility] Last Admin: 11/19/19 10:30 Dose: 5 mg Documented by: Furosemide (Lasix Injection -) 40 mg IVPUSH DAILY [facility] Last Admin: 11/19/19 10:30 Dose: 40 mg Documented by: Lidocaine (Lidoderm Patch -) 1 patch TP DAILY [facility] Last Admin: 11/19/19 10:31 Dose: 1 patch Documented by: Metoprolol Succinate (Toprol Xl -) 25 mg PO DAILY [facility] Last Admin: 11/19/19 10:30 Dose: 25 mg Documented by: Miscellaneous (Lidoderm Patch Removal) 1 each MC DAILY@2200 [facility] Last Admin: 11/18/19 21:05 Dose: 1 each Documented by: Oxycodone HCl (Roxicodone -) 5 mg PO Q4H PRN PRN Reason: PAIN LEVEL 6-10 Last Admin: 11/19/19 11:05 Dose: 5 mg Documented by: Rosuvastatin Calcium (Crestor -) 10 mg PO [facility] Valsartan (Diovan -) 160 mg PO DAILY [facility] Last Admin: 11/19/19 10:30 Dose: 160 mg Documented by: Warfarin Sodium (Coumadin -) 6 mg PO DAILY@1800 [facility] Last Admin: 11/18/19 19:27 Dose: Not Given Documented by: A/P Acute on Chronic Diastolic Heart Failure Atrial Fibrillation CAD HTN Hyperlipidemia Morbid Obesity - continue lasix - monitor urine output, creatinine - daily weights - O2 to keep SpO2 >90% - rate control - continue anticoagulation - outpt f/u of CT chest
--- NOTE | 2019-11-19 13:58 | PN ---
Progress Note, Physician History of Present Illness: This is a 64 year old male with a PMH of CHF, HTN, HLD, NIDDM, AFib (since 2008, on warfarin), and know CAD. He had an OR in 2014 and received a coronary stent. He presents now with about one week of progressive DAVIS, orthopnea, and worsening lower extremity edema. CXR 11/17/2019 shows congestive changes and a possible right upper lobe inflitrate. EKG 11/17/2019 AFIB at 62 BPM with low QRS voltage, incomplete RBBB, and NSSTTW changes. Echocardiogram 11/18/2019 Lawanda LV size and function. Normal RV size and function. Mild MR. EF 65% Troponin I < 0.02 BNP 910 - Current Medication List Current Medications: Active Medications Acetaminophen (Tylenol -) 1,000 mg PO Q6H PRN PRN Reason: PAIN LEVEL 1-5 Amlodipine Besylate (Norvasc -) 5 mg PO DAILY [facility] Last Admin: 11/19/19 10:30 Dose: 5 mg Documented by: Furosemide (Lasix Injection -) 40 mg IVPUSH DAILY [facility] Last Admin: 11/19/19 10:30 Dose: 40 mg Documented by: Lidocaine (Lidoderm Patch -) 1 patch TP DAILY [facility] Last Admin: 11/19/19 10:31 Dose: 1 patch Documented by: Metoprolol Succinate (Toprol Xl -) 25 mg PO DAILY [facility] Last Admin: 11/19/19 10:30 Dose: 25 mg Documented by: Miscellaneous (Lidoderm Patch Removal) 1 each MC DAILY@2200 [facility] Last Admin: 11/18/19 21:05 Dose: 1 each Documented by: Oxycodone HCl (Roxicodone -) 5 mg PO Q4H PRN PRN Reason: PAIN LEVEL 6-10 Last Admin: 11/19/19 11:05 Dose: 5 mg Documented by: Rosuvastatin Calcium (Crestor -) 10 mg PO HS [facility] Valsartan (Diovan -) 160 mg PO DAILY [facility] Last Admin: 11/19/19 10:30 Dose: 160 mg Documented by: Warfarin Sodium (Coumadin -) 6 mg PO DAILY@1800 [facility] Last Admin: 11/18/19 19:27 Dose: Not Given Documented by: - Objective Vital Signs: Vital Signs Temperature 97.6 F 11/19/19 10:00 Pulse Rate 82 11/19/19 10:00 Respiratory Rate 18 11/19/19 10:00 Blood Pressure 137/67 11/19/19 10:00 O2 Sat by Pulse Oximetry (%) 95 11/19/19 10:00 Constitutional: Yes: No Distress Eyes: Yes: WNL HENT: Yes: WNL Neck: Yes: WNL Cardiovascular: Yes: Regular Rate and Rhythm, S1, S2 Respiratory: Yes: CTA Bilaterally Gastrointestinal: Yes: Soft Extremities: Yes: WNL Edema: LLE: 1+, RLE: 1+ Neurological: Yes: Alert, Oriented Labs: CBC, BMP 11/18/19 08:00 11/19/19 06:30 INR, PTT INR 2.69 (0.83-1.09) H 11/19/19 06:30 Assessment/Plan CHF Echocardiogram Normal LV function, normal RV function, EF 65% Diastolic, acute on chronic Lasix IVSS 40 mg, would give BID Follow daily I's/O's/Wt's/Lytes AFIB Rate controlled with metoprolol Continue Coumadin therapy to an INR of 2 - 3 HTN/HLD Continue: Amlodipine Besylate (Norvasc -) 5 mg PO DAILY Valsartan (Diovan -) 160 mg PO DAILY Metoprolol Succinate (Toprol Xl -) 25 mg PO DAILY Rosuvastatin Calcium (Crestor -) 10 mg PO HS
[2019-11-19] MEDS ORDERED: POTASSIUM CHLORIDE TABS 20 MEQ TABLET.ER (FP) PO ONE (17:08)
[2019-11-19] MEDS ORDERED: FUROSEMIDE 40 MG/4 ML INJECTABLE VIAL IVPUSH ONE (17:08)
--- NOTE | 2019-11-19 17:08 | PN ---
Progress Note, Physician History of Present Illness: Pt seen and examined at bedside. He is awake and alert. he feels that his edema is starting to improve. - Current Medication List Current Medications: Active Medications Acetaminophen (Tylenol -) 1,000 mg PO Q6H PRN PRN Reason: PAIN LEVEL 1-5 Amlodipine Besylate (Norvasc -) 5 mg PO DAILY [facility] Last Admin: 11/19/19 10:30 Dose: 5 mg Documented by: Furosemide (Lasix Injection -) 40 mg IVPUSH DAILY [facility] Last Admin: 11/19/19 10:30 Dose: 40 mg Documented by: Lidocaine (Lidoderm Patch -) 1 patch TP DAILY [facility] Last Admin: 11/19/19 10:31 Dose: 1 patch Documented by: Metoprolol Succinate (Toprol Xl -) 25 mg PO DAILY [facility] Last Admin: 11/19/19 10:30 Dose: 25 mg Documented by: Miscellaneous (Lidoderm Patch Removal) 1 each MC DAILY@2200 [facility] Last Admin: 11/18/19 21:05 Dose: 1 each Documented by: Oxycodone HCl (Roxicodone -) 5 mg PO Q4H PRN PRN Reason: PAIN LEVEL 6-10 Last Admin: 11/19/19 11:05 Dose: 5 mg Documented by: Rosuvastatin Calcium (Crestor -) [address] [facility] Valsartan (Diovan -) 160 mg PO DAILY [facility] Last Admin: 11/19/19 10:30 Dose: 160 mg Documented by: Warfarin Sodium (Coumadin -) 6 mg PO DAILY@1800 [facility] Last Admin: 11/18/19 19:27 Dose: Not Given Documented by: - Objective Vital Signs: Vital Signs Temperature 97.6 F 11/19/19 14:00 Pulse Rate 85 11/19/19 14:00 Respiratory Rate 20 11/19/19 14:00 Blood Pressure 151/65 11/19/19 14:00 O2 Sat by Pulse Oximetry (%) 97 11/19/19 14:00 Constitutional: Yes: Calm Eyes: Yes: Conjunctiva Clear HENT: Yes: Atraumatic Neck: Yes: Supple Cardiovascular: Yes: S1, S2 Respiratory: Yes: CTA Bilaterally Gastrointestinal: Yes: Normal Bowel Sounds, Soft Genitourinary: Yes: WNL Musculoskeletal: Yes: WNL Edema: Yes Edema: LLE: 2+, RLE: 2+ Neurological: Yes: Oriented Psychiatric: Yes: Oriented Labs: CBC, BMP 11/18/19 08:00 11/19/19 06:30 INR, PTT INR 2.69 (0.83-1.09) H 11/19/19 06:30 Assessment/Plan Current Medications Generic Name Dose Route Start Last Admin Trade Name Freq PRN Reason Stop Dose Admin Acetaminophen 1,000 mg 11/17/19 21:33 Tylenol - PO Q6H PRN PAIN LEVEL 1-5 Amlodipine Besylate 5 mg 11/18/19 10:00 11/19/19 10:30 Norvasc - PO 5 mg DAILY [facility] Administration Furosemide 40 mg 11/18/19 10:00 11/19/19 10:30 Lasix Injection - IVPUSH 40 mg DAILY [facility] Administration Lidocaine 1 patch 11/18/19 10:00 11/19/19 10:31 Lidoderm Patch - TP 1 patch DAILY [facility] Administration Metoprolol Succinate 25 mg 11/18/19 10:00 11/19/19 10:30 Toprol Xl - PO 25 mg DAILY [facility] Administration Miscellaneous 1 each 11/18/19 22:00 11/18/19 21:05 Lidoderm Patch Removal MC 1 each DAILY@2200 [facility] Administration Oxycodone HCl 5 mg 11/17/19 21:33 11/19/19 11:05 Roxicodone - PO 5 mg Q4H PRN Administration PAIN LEVEL 6-10 Rosuvastatin Calcium 10 mg 11/19/19 22:00 Crestor - PO HS [facility] Valsartan 160 mg 11/18/19 10:00 11/19/19 10:30 Diovan - PO 160 mg DAILY [facility] Administration Warfarin Sodium 6 mg 11/18/19 18:00 11/18/19 19:27 Coumadin - PO Not Given DAILY@1800 [facility] Impression 1. fluid overload 2. chf 3. dm 4. a-fib 5. htn Plan - replace potassium - will give another dose of laisx - renal function is stable - check daily weights - keep net negative
[2019-11-19] MEDS: LIDOCAINE PATCH REMOVAL MC SCH (21:08)
[2019-11-19] MEDS ORDERED: ROSUVASTATIN CA 10 MG TABLET (FP) PO SCH (22:00)
[2019-11-20] MEDS: FUROSEMIDE 40 MG/4 ML INJECTABLE VIAL IVPUSH SCH ×2 (05:34→14:08)
[2019-11-20 08:13] LABS: BLOOD UREA NITROGEN 16.6 mg/dL (7-18); CALCIUM 8.9 mg/dL (8.5-10.1); MAGNESIUM 2.1 mg/dL (1.8-2.4); POTASSIUM 3.4 mmol/L (3.5-5.1)
[2019-11-20] MEDS ORDERED: PT OWN MED DRAWER 7, Y5N ONE (09:04)
[2019-11-20] MEDS: amLODIPine BESYLATE 5 MG TABLET (FP) PO SCH (09:13)
[2019-11-20] MEDS: LIDOCAINE 5% TOPICAL PATCH TP SCH (09:13)
[2019-11-20] MEDS: VALSARTAN 160 MG TABLET (UD) PO SCH (09:13)
[2019-11-20] MEDS: metoPROLOL SUCCINATE 25 MG TAB.SR.24H (FP) PO SCH (09:13)
[2019-11-20] MEDS ORDERED: POTASSIUM CHLORIDE TABS 10 MEQ TABLET.ER (FP) PO ONE (10:51)
[2019-11-20] MEDS ORDERED: AZITHROMYCIN IVPB 500 MG/250 ML BAG IVPB ONE (10:55)
[2019-11-20] MEDS ORDERED: CEFTRIAXONE 2 GM in DEXTROSE 5%-WATER 100 ML IVPB ONE (10:56)
[2019-11-20] MEDS: oxyCODONE HCL 5 MG TABLET PO PRN (11:06)
--- NOTE | 2019-11-20 12:04 | PN ---
Progress Note (short form) - Note Progress Note: PULMONARY Adm weight 292lbs now 281 lbs VSS/AFEBRILE/SPO2 97% ROOM AIR Gen: NAD at rest Heart: RRR Lung: scattered rhonchi Abd: soft, nontender Ext: + edema but less CT chest: RUL patchy infiltrate/large heart labs/meds/notes/images reviewed A/P Acute on Chronic Diastolic Heart Failure Atrial Fibrillation CAD HTN Hyperlipidemia Morbid Obesity - continue lasix - daily weights - rate control - continue anticoagulation - outpt f/u of CT chest No objection to continuing treatment as an outpatient. Sabrina Valladares MD
[2019-11-20] MEDS ORDERED: DEXTROSE 5%-WATER 100 ML IVPB ONE (12:13)
--- NOTE | 2019-11-20 13:17 | PN ---
Progress Note, Physician Chief Complaint: No new complaints History of Present Illness: This is a 64 year old male with a PMH of CHF, HTN, HLD, NIDDM, AFib (since 2008, on warfarin), and know CAD. He had an AR in 2014 and received a coronary stent. He presents now with about one week of progressive DAVIS, orthopnea, and worsening lower extremity edema. CXR 11/17/2019 shows congestive changes and a possible right upper lobe inflitrate. EKG 11/17/2019 AFIB at 62 BPM with low QRS voltage, incomplete RBBB, and NSSTTW changes. Echocardiogram 11/18/2019 Lawanda LV size and function. Normal RV size and function. Mild MR. EF 65% Troponin I < 0.02 BNP 910 11/20/2019 Weight decreased from 292lbs to 281lbs, BUN 17, Cr 1.0 Still with peripheral edema, but markedly improved - Current Medication List Current Medications: Active Medications Acetaminophen (Tylenol -) 1,000 mg PO Q6H PRN PRN Reason: PAIN LEVEL 1-5 Amlodipine Besylate (Norvasc -) 5 mg PO DAILY [facility] Last Admin: 11/20/19 09:13 Dose: 5 mg Documented by: Furosemide (Lasix Injection -) 40 mg IVPUSH BIDLASIX [facility] Last Admin: 11/20/19 05:34 Dose: 40 mg Documented by: Lidocaine (Lidoderm Patch -) 1 patch TP DAILY [facility] Last Admin: 11/20/19 09:13 Dose: 1 patch Documented by: Metoprolol Succinate (Toprol Xl -) 25 mg PO DAILY [facility] Last Admin: 11/20/19 09:13 Dose: 25 mg Documented by: Miscellaneous (Lidoderm Patch Removal) 1 each MC DAILY@2200 [facility] Last Admin: 11/19/19 21:08 Dose: 1 each Documented by: Oxycodone HCl (Roxicodone -) 5 mg PO Q4H PRN PRN Reason: PAIN LEVEL 6-10 Last Admin: 11/20/19 11:06 Dose: 5 mg Documented by: Rosuvastatin Calcium (Crestor -) 10 mg PO HS [facility] Last Admin: 11/19/19 21:08 Dose: 10 mg Documented by: Valsartan (Diovan -) 160 mg PO DAILY [facility] Last Admin: 11/20/19 09:13 Dose: 160 mg Documented by: Warfarin Sodium (Coumadin -) 6 mg PO DAILY@1800 [facility] Last Admin: 11/18/19 19:27 Dose: Not Given Documented by: - Objective Vital Signs: Vital Signs Temperature 98 F 11/20/19 06:00 Pulse Rate 76 11/20/19 06:00 Respiratory Rate 20 11/20/19 06:00 Blood Pressure 123/76 11/20/19 06:00 O2 Sat by Pulse Oximetry (%) 97 11/20/19 06:00 Constitutional: Yes: No Distress Eyes: Yes: WNL HENT: Yes: WNL Neck: Yes: WNL Cardiovascular: Yes: Pulse Irregular, S1, S2 Respiratory: Yes: Dullness (at bases) Gastrointestinal: Yes: Soft Edema: LLE: 1+, RLE: 1+ Neurological: Yes: Alert, Oriented Labs: CBC, BMP 11/18/19 08:00 11/20/19 07:02 INR, PTT INR 2.69 (0.83-1.09) H 11/19/19 06:30 Assessment/Plan 11/20/2019 Weight decreased from 292lbs to 281lbs, BUN 17, Cr 1.0 Still with peripheral edema, but markedly improved CHF Lost 11 lbs Still with peripheral edema, but markedly improved Echocardiogram Normal LV function, normal RV function, EF 65% Diastolic, acute on chronic Would contine Lasix IVSS 40mg BID for one or two more days and then transition to PO Continue to follow daily I's/O's/Wt's/Lytes AFIB Rate controlled with metoprolol Continue Coumadin therapy to an INR of 2 - 3 HTN/HLD Continue: Amlodipine Besylate (Norvasc -) 5 mg PO DAILY Valsartan (Diovan -) 160 mg PO DAILY Metoprolol Succinate (Toprol Xl -) 25 mg PO DAILY Rosuvastatin Calcium (Crestor -) 10 mg PO HS
[2019-11-20 13:45] VITALS: BMI 43.9
--- NOTE | 2019-11-20 14:28 | PN ---
Progress Note, Physician Chief Complaint: PER CARDIOLOGY CONTINUE IV LASIX FOR 2 MORE DAYS DC SATURDAY 11LBS LOSS OF FLUID BREATHING BETTER - Current Medication List Current Medications: Active Medications Acetaminophen (Tylenol -) 1,000 mg PO Q6H PRN PRN Reason: PAIN LEVEL 1-5 Amlodipine Besylate (Norvasc -) 5 mg PO DAILY [facility] Last Admin: 11/20/19 09:13 Dose: 5 mg Documented by: Furosemide (Lasix Injection -) 40 mg IVPUSH BIDLASIX [facility] Last Admin: 11/20/19 14:08 Dose: 40 mg Documented by: Lidocaine (Lidoderm Patch -) 1 patch TP DAILY [facility] Last Admin: 11/20/19 09:13 Dose: 1 patch Documented by: Metoprolol Succinate (Toprol Xl -) 25 mg PO DAILY [facility] Last Admin: 11/20/19 09:13 Dose: 25 mg Documented by: Miscellaneous (Lidoderm Patch Removal) 1 each MC DAILY@2200 [facility] Last Admin: 11/19/19 21:08 Dose: 1 each Documented by: Oxycodone HCl (Roxicodone -) 5 mg PO Q4H PRN PRN Reason: PAIN LEVEL 6-10 Last Admin: 11/20/19 11:06 Dose: 5 mg Documented by: Rosuvastatin Calcium (Crestor -) 10 mg PO HS [facility] Last Admin: 11/19/19 21:08 Dose: 10 mg Documented by: Valsartan (Diovan -) 160 mg PO DAILY [facility] Last Admin: 11/20/19 09:13 Dose: 160 mg Documented by: Warfarin Sodium (Coumadin -) 6 mg PO DAILY@1800 [facility] Last Admin: 11/18/19 19:27 Dose: Not Given Documented by: - Objective Vital Signs: Vital Signs Temperature 98 F 11/20/19 06:00 Pulse Rate 76 11/20/19 06:00 Respiratory Rate 20 11/20/19 06:00 Blood Pressure 123/76 11/20/19 06:00 O2 Sat by Pulse Oximetry (%) 97 11/20/19 06:00 Constitutional: Yes: Mild Distress Cardiovascular: Yes: Pulse Irregular Respiratory: Yes: Diminished Gastrointestinal: Yes: Abdomen, Obese Musculoskeletal: Yes: Back Pain Edema: Yes Edema: LLE: 2+, RLE: 2+ Labs: CBC, BMP 11/18/19 08:00 11/20/19 07:02 INR, PTT INR 2.69 (0.83-1.09) H 11/19/19 06:30 Problem List - Problems (1) Atrial fibrillation Code(s): I48.91 - UNSPECIFIED ATRIAL FIBRILLATION (2) Dyspnea Code(s): R06.00 - DYSPNEA, UNSPECIFIED (3) Obesity (BMI 30-39.9) Code(s): E66.9 - OBESITY, UNSPECIFIED (4) CAD (coronary artery disease) Code(s): I25.10 - ATHSCL HEART DISEASE OF [place] CORONARY ARTERY W/O ANG PCTRS (5) Anemia Code(s): D64.9 - ANEMIA, UNSPECIFIED (6) H/O: GI bleed Code(s): Z87.19 - PERSONAL HISTORY OF OTHER DISEASES OF THE DIGESTIVE SYSTEM (7) CHF exacerbation Code(s): I50.9 - HEART FAILURE, UNSPECIFIED Qualifiers: Heart failure type: unspecified Qualified Code(s): I50.9 - Heart failure, unspecified Assessment/Plan DIURESIS AND MONITOR LABS INCREASED LASIX TO BID CARDIOLOGY EVAL APPRECIATED DAILY [facility] MONITOR RENAL FUNCTION CT SCAN REVIEWED TREAT PNEUMONIA CEFTRIAXONE/AZITHRO MONITOR INR CARDIOLOGY AND PULMONARY EVAL APPRECIATED AC FOR AFIB PULM EVAL OOB TO CHAIR DC PLANNING FOR SATURDAY
--- NOTE | 2019-11-20 16:06 | PN ---
Progress Note, Physician History of Present Illness: Pt seen and examined at bedside. He is awake and alert. he feels that his edema is improving. - Current Medication List Current Medications: Active Medications Acetaminophen (Tylenol -) 1,000 mg PO Q6H PRN PRN Reason: PAIN LEVEL 1-5 Amlodipine Besylate (Norvasc -) 5 mg PO DAILY [facility] Last Admin: 11/20/19 09:13 Dose: 5 mg Documented by: Furosemide (Lasix Injection -) 40 mg IVPUSH BIDLASIX [facility] Last Admin: 11/20/19 14:08 Dose: 40 mg Documented by: Lidocaine (Lidoderm Patch -) 1 patch TP DAILY [facility] Last Admin: 11/20/19 09:13 Dose: 1 patch Documented by: Metoprolol Succinate (Toprol Xl -) 25 mg PO DAILY [facility] Last Admin: 11/20/19 09:13 Dose: 25 mg Documented by: Miscellaneous (Lidoderm Patch Removal) 1 each MC DAILY@2200 [facility] Last Admin: 11/19/19 21:08 Dose: 1 each Documented by: Oxycodone HCl (Roxicodone -) 5 mg PO Q4H PRN PRN Reason: PAIN LEVEL 6-10 Last Admin: 11/20/19 11:06 Dose: 5 mg Documented by: Rosuvastatin Calcium (Crestor -) 10 mg PO [facility] Last Admin: 11/19/19 21:08 Dose: 10 mg Documented by: Valsartan (Diovan -) 160 mg PO DAILY [facility] Last Admin: 11/20/19 09:13 Dose: 160 mg Documented by: Warfarin Sodium (Coumadin -) 6 mg PO DAILY@1800 [facility] Last Admin: 11/18/19 19:27 Dose: Not Given Documented by: - Objective Vital Signs: Vital Signs Temperature 97.9 F 11/20/19 15:07 Pulse Rate 77 11/20/19 15:07 Respiratory Rate 18 11/20/19 15:07 Blood Pressure 116/75 11/20/19 15:07 O2 Sat by Pulse Oximetry (%) 97 11/20/19 15:07 Constitutional: Yes: Calm Eyes: Yes: Conjunctiva Clear HENT: Yes: Atraumatic Neck: Yes: Supple Cardiovascular: Yes: S1, S2 Respiratory: Yes: CTA Bilaterally Gastrointestinal: Yes: Normal Bowel Sounds, Soft Genitourinary: Yes: WNL Musculoskeletal: Yes: WNL Edema: Yes Edema: LLE: 2+, RLE: 2+ Neurological: Yes: Oriented Psychiatric: Yes: Oriented Labs: CBC, BMP 11/18/19 08:00 11/20/19 07:02 INR, PTT INR 2.69 (0.83-1.09) H 11/19/19 06:30 Assessment/Plan Current Medications Generic Name Dose Route Start Last Admin Trade Name Freq PRN Reason Stop Dose Admin Acetaminophen 1,000 mg 11/17/19 21:33 Tylenol - PO Q6H PRN PAIN LEVEL 1-5 Amlodipine Besylate 5 mg 11/18/19 10:00 11/20/19 09:13 Norvasc - PO 5 mg DAILY [facility] Administration Furosemide 40 mg 11/20/19 06:00 11/20/19 14:08 Lasix Injection - IVPUSH 40 mg BIDLASIX [facility] Administration Lidocaine 1 patch 11/18/19 10:00 11/20/19 09:13 Lidoderm Patch - TP 1 patch DAILY [facility] Administration Metoprolol Succinate 25 mg 11/18/19 10:00 11/20/19 09:13 Toprol Xl - PO 25 mg DAILY [facility] Administration Miscellaneous 1 each 11/18/19 22:00 11/19/19 21:08 Lidoderm Patch Removal MC 1 each DAILY@2200 [facility] Administration Oxycodone HCl 5 mg 11/17/19 21:33 11/20/19 11:06 Roxicodone - PO 5 mg Q4H PRN Administration PAIN LEVEL 6-10 Rosuvastatin Calcium 10 mg 11/19/19 22:00 11/19/19 21:08 Crestor - PO 10 mg HS [facility] Administration Valsartan 160 mg 11/18/19 10:00 11/20/19 09:13 Diovan - PO 160 mg DAILY [facility] Administration Warfarin Sodium 6 mg 11/18/19 18:00 11/18/19 19:27 Coumadin - PO Not Given DAILY@1800 [facility] Impression 1. fluid overload 2. chf 3. dm 4. a-fib 5. htn Plan - replace potassium - cont lasix - renal function stable - monitor lytes - daily weights - volume status is improved - will follow prn
[2019-11-20 16:41] VITALS: BP 129/80; PULSE 76; TEMP 98.3
[2019-11-20] MEDS: WARFARIN NA 3 MG TABLET PO SCH (17:40)
--- NOTE | 2019-11-21 07:10 | DS ---
Physical Examination Vital Signs: Vital Signs Temperature 98.3 F 11/20/19 16:39 Pulse Rate 76 11/20/19 16:39 Respiratory Rate 20 11/20/19 16:39 Blood Pressure 129/80 11/20/19 16:39 O2 Sat by Pulse Oximetry (%) 97 11/20/19 15:07 Constitutional: Yes: No Distress Labs: CBC, BMP 11/18/19 08:00 11/20/19 07:02 Discharge Summary Problems reviewed: Yes Reason For Visit: ACUTE ON CHRONIC CONGESTIVE HEART FAILURE Plan of Treatment: lasix bid Condition: Stable - Instructions Diet, Activity, Other Instructions: see dr givens in 1 week Referrals: Jennifer Givens MD [Primary Care Provider] - Disposition: HOME - Home Medications Comprehensive Discharge Medication List: Ambulatory Orders Amlodipine Besylate/Benazepril [Lotrel 5-20 mg Capsule] 1 cap PO DAILY 09/04/17 Oxycodone HCl/Acetaminophen 1 tab PO PRN PRN MDD 3 09/04/17 Toprol Xl 25 mg PO DAILY 09/04/17 Warfarin Sodium [Coumadin] 6 mg PO DAILY 09/04/17
== END 2019-11-20 17:55 | disposition home or self-care (01) | DRG 291 ==
LOC: JER 13:20 → JERBED 17:12 → J8W 21:26
PROVIDERS: ADMIT Family Medicine; ATTEND Family Medicine
DX: I11.0 Hypertensive heart disease with heart failure (principal); J18.9 Pneumonia, unspecified organism; Z68.41 Body mass index [BMI] 40.0-44.9, adult; I48.91 Unspecified atrial fibrillation; I50.33 Acute on chronic diastolic (congestive) heart failure; E78.5 Hyperlipidemia, unspecified; E11.9 Type 2 diabetes mellitus without complications; M48.061 Spinal stenosis, lumbar region without neurogenic claudication; I25.2 Old myocardial infarction; D64.9 Anemia, unspecified; E66.01 Morbid (severe) obesity due to excess calories; E87.70 Fluid overload, unspecified; R91.1 Solitary pulmonary nodule; I25.10 Atherosclerotic heart disease of native coronary artery without angina pectoris; I45.10 Unspecified right bundle-branch block; Z95.5 Presence of coronary angioplasty implant and graft; Z87.19 Personal history of other diseases of the digestive system; Z79.01 Long term (current) use of anticoagulants
CPT/HCPCS: 36415; 71046-TC-FY; 71250-TC; 80048; 80053; 80061; 81003; 82550; 83036; 83721; 83735; 83880; 84484; 85025; 85610; 85730; 93005; 93010; 93306-TC; 97116-GP; 97161-GP; 99285-25; J1644; U0003

== ENCOUNTER 2022-10-13 14:15 | Inpatient (IN) | payer OTHER ==
[2022-10-13 14:26] VITALS: BMI 43.8
[2022-10-13] MEDS ORDERED: FUROSEMIDE 40 MG/4 ML INJECTABLE VIAL IVPUSH ONE (14:50)
[2022-10-13] MEDS ORDERED: FUROSEMIDE 40 MG/4 ML INJECTABLE VIAL ONE (15:10)
[2022-10-13 15:13] LABS: VENOUS BASE EXCESS 8.8 mmol/L (-2-2); VENOUS O2 SATURATION 24.1 % (70-80); VENOUS PCO2 61.6 mmHg (38-52); VENOUS PH 7.38 (7.310-7.410)
[2022-10-13 15:21] LABS: BASO % 0.6 % (0-2.0); EOS % 4.9 % (0-4.5); HEMATOCRIT 29.7 % (35.4-49); HEMOGLOBIN 8.6 GM/dL (11.7-16.9); LYMPH % 15.2 % (8-40); MCH 20.2 pg (25.7-33.7); MCHC 28.8 g/dl (32.0-35.9); MEAN CELL VOLUME 70.2 fl (80-96); MEAN PLT VOLUME 8.1 fl (7.5-11.1); MONO % 9.4 % (3.8-10.2); NEUT % 69.9 % (42.8-82.8); PLATELET COUNT 193 10^3/uL (134-434); RBC 4.24 M/mm3 (4.00-5.60); RDW 22.5 % (11.9-15.9); WHITE BLOOD COUNT 4.8 K/mm3 (4.0-10.0)
[2022-10-13 15:28] LABS: INR 1.45 (0.83-1.09); PROTHROMBIN TIME (PATIENT) 16.8 SEC (9.7-13.0)
[2022-10-13 15:31] LABS: ACTIVATED PTT 33.3 SECONDS (25.2-36.5)
[2022-10-13 15:43] LABS: CALCIUM 8.4 mg/dL (8.5-10.1); POTASSIUM 3.7 mmol/L (3.5-5.1)
[2022-10-13 15:44] LABS: ALBUMIN 2.7 g/dl (3.4-5.0)
[2022-10-13 15:45] LABS: BLOOD UREA NITROGEN 16.6 mg/dL (7-18)
[2022-10-13 15:46] LABS: ANISOCYTOSIS 2+; MACROCYTOSIS 0
[2022-10-13 15:48] LABS: CREATININE 1.3 mg/dL (0.55-1.3)
[2022-10-13 15:50] LABS: BILIRUBIN,TOTAL 0.9 mg/dL (0.2-1)
[2022-10-13 15:52] LABS: N-TERMINAL BNP 854.7 pg/ml (5-125)
[2022-10-13] MEDS ORDERED: ACETAMINOPHEN 325 MG TABLET (FP) PO PRN (20:28)
[2022-10-13] MEDS ORDERED: DOCUSATE SODIUM 100 MG CAPSULE (FP) PO PRN (20:28)
[2022-10-14] MEDS: LEVOTHYROXINE NA 25 MCG TABLET (FP) PO SCH (07:06)
[2022-10-14] MEDS ORDERED: FUROSEMIDE 100 MG/10 ML INJECTABLE VIAL IVPB ONE (08:00)
[2022-10-14] MEDS: FLUTICASONE PROP 0.05% 16 GM NASAL SPRAY NS SCH (09:15)
[2022-10-14] MEDS: TRIAMCINOLONE ACET 0.1% CREAM 15 GM TUBE TP SCH ×2 (09:15→21:07)
[2022-10-14 09:28] LABS: INR 1.37 (0.83-1.09); PROTHROMBIN TIME (PATIENT) 15.8 SEC (9.7-13.0)
[2022-10-14 09:31] LABS: ACTIVATED PTT 33.6 SECONDS (25.2-36.5)
[2022-10-14 09:40] LABS: BASO % 1.7 % (0-2.0); EOS % 5.8 % (0-4.5); HEMATOCRIT 31.7 % (35.4-49); HEMOGLOBIN 9.1 GM/dL (11.7-16.9); LYMPH % 14.9 % (8-40); MCH 20.5 pg (25.7-33.7); MCHC 28.7 g/dl (32.0-35.9); MEAN CELL VOLUME 71.3 fl (80-96); MEAN PLT VOLUME 8.5 fl (7.5-11.1); MONO % 7.7 % (3.8-10.2); NEUT % 69.9 % (42.8-82.8); PLATELET COUNT 210 10^3/uL (134-434); RBC 4.45 M/mm3 (4.00-5.60); RDW 23.1 % (11.9-15.9); WHITE BLOOD COUNT 5.5 K/mm3 (4.0-10.0)
[2022-10-14 09:51] LABS: POTASSIUM 3.7 mmol/L (3.5-5.1)
[2022-10-14 09:58] LABS: BLOOD UREA NITROGEN 16.7 mg/dL (7-18)
[2022-10-14 09:59] LABS: MAGNESIUM 1.9 mg/dL (1.8-2.4)
[2022-10-14] MEDS ORDERED: APIXABAN 5 MG TABLET PO SCH (10:00)
[2022-10-14] MEDS ORDERED: CLOPIDOGREL BISULFATE 75 MG TABLET (FP) PO SCH (10:00)
[2022-10-14 10:01] LABS: CREATININE 1.3 mg/dL (0.55-1.3); PHOSPHOROUS 3.3 mg/dL (2.5-4.9)
[2022-10-14] MEDS: ATORVASTATIN CA 80 MG TABLET (FP) PO SCH (21:08)
[2022-10-15] MEDS: LEVOTHYROXINE NA 25 MCG TABLET (FP) PO SCH (06:27)
[2022-10-15] MEDS: TRIAMCINOLONE ACET 0.1% CREAM 15 GM TUBE TP SCH ×2 (09:53→22:39)
[2022-10-15] MEDS: FLUTICASONE PROP 0.05% 16 GM NASAL SPRAY NS SCH (09:54)
[2022-10-15] MEDS ORDERED: FUROSEMIDE 100 MG/10 ML INJECTABLE VIAL IVPB SCH (10:30)
[2022-10-15 15:19] LABS: URINE APPEARANCE CLEAR; URINE BILIRUBIN NEGATIVE (NEGATIVE); URINE COLOR YELLOW; URINE GLUCOSE (UA) NEGATIVE (NEGATIVE); URINE KETONE NEGATIVE (NEGATIVE); URINE LEUK ESTERASE NEGATIVE (NEGATIVE); URINE NITRITE NEGATIVE (NEGATIVE); URINE PROTEIN TRACE (NEGATIVE)
[2022-10-15 16:36] LABS: BASO % 1.4 % (0-2.0); EOS % 3.4 % (0-4.5); HEMATOCRIT 30.8 % (35.4-49); HEMOGLOBIN 8.9 GM/dL (11.7-16.9); LYMPH % 15.9 % (8-40); MCH 20.4 pg (25.7-33.7); MCHC 28.9 g/dl (32.0-35.9); MEAN CELL VOLUME 70.5 fl (80-96); MEAN PLT VOLUME 8.1 fl (7.5-11.1); MONO % 7.6 % (3.8-10.2); NEUT % 71.7 % (42.8-82.8); PLATELET COUNT 212 10^3/uL (134-434); RBC 4.37 M/mm3 (4.00-5.60); RDW 23.6 % (11.9-15.9); WHITE BLOOD COUNT 6.8 K/mm3 (4.0-10.0)
[2022-10-15 17:02] LABS: POTASSIUM 3.9 mmol/L (3.5-5.1)
[2022-10-15 17:04] LABS: BLOOD UREA NITROGEN 29.2 mg/dL (7-18)
[2022-10-15 17:07] LABS: CREATININE 1.8 mg/dL (0.55-1.3)
[2022-10-15] MEDS: ATORVASTATIN CA 80 MG TABLET (FP) PO SCH (22:39)
[2022-10-15] MEDS: APIXABAN 5 MG TABLET PO SCH (22:39)
[2022-10-16] MEDS: LEVOTHYROXINE NA 25 MCG TABLET (FP) PO SCH (06:39)
[2022-10-16 08:46] LABS: BASO % 1.5 % (0-2.0); EOS % 3.4 % (0-4.5); HEMATOCRIT 31.2 % (35.4-49); HEMOGLOBIN 8.9 GM/dL (11.7-16.9); LYMPH % 20.8 % (8-40); MCH 20.2 pg (25.7-33.7); MCHC 28.6 g/dl (32.0-35.9); MEAN CELL VOLUME 70.8 fl (80-96); MEAN PLT VOLUME 8.5 fl (7.5-11.1); MONO % 12.7 % (3.8-10.2); NEUT % 61.6 % (42.8-82.8); PLATELET COUNT 197 10^3/uL (134-434); RDW 23.7 % (11.9-15.9); WHITE BLOOD COUNT 5.9 K/mm3 (4.0-10.0)
[2022-10-16 09:02] LABS: POTASSIUM 3.8 mmol/L (3.5-5.1)
[2022-10-16 09:04] LABS: CALCIUM 7.7 mg/dL (8.5-10.1)
[2022-10-16 09:05] LABS: ALBUMIN 2.8 g/dl (3.4-5.0); BLOOD UREA NITROGEN 31.9 mg/dL (7-18)
[2022-10-16 09:08] LABS: CREATININE 1.7 mg/dL (0.55-1.3)
[2022-10-16 09:10] LABS: BILIRUBIN,TOTAL 0.9 mg/dL (0.2-1); TOT PROT 8.2 g/dl (6.4-8.2)
[2022-10-16] MEDS: PANTOPRAZOLE 40 MG TABLET PO SCH (09:47)
[2022-10-16] MEDS: APIXABAN 5 MG TABLET PO SCH ×2 (09:48→21:05)
[2022-10-16] MEDS: FLUTICASONE PROP 0.05% 16 GM NASAL SPRAY NS SCH (09:49)
[2022-10-16] MEDS: TRIAMCINOLONE ACET 0.1% CREAM 15 GM TUBE TP SCH ×2 (09:49→21:04)
[2022-10-16] MEDS ORDERED: FUROSEMIDE 40 MG TABLET (FP) PO SCH (10:00)
[2022-10-16] MEDS ORDERED: CLOPIDOGREL BISULFATE 75 MG TABLET (FP) PO SCH (10:00)
[2022-10-16] MEDS ORDERED: IRON SUCROSE INJECTION 200 MG in SODIUM CHLORIDE 90 ML IVPB ONE (12:30)
[2022-10-16] MEDS: ATORVASTATIN CA 80 MG TABLET (FP) PO SCH (21:04)
[2022-10-17] MEDS: LEVOTHYROXINE NA 25 MCG TABLET (FP) PO SCH (06:44)
[2022-10-17 09:15] LABS: BASO % 1.5 % (0-2.0); EOS % 3.9 % (0-4.5); HEMATOCRIT 31.7 % (35.4-49); HEMOGLOBIN 9.3 GM/dL (11.7-16.9); LYMPH % 20.4 % (8-40); MCH 20.6 pg (25.7-33.7); MCHC 29.5 g/dl (32.0-35.9); MEAN CELL VOLUME 69.9 fl (80-96); MEAN PLT VOLUME 8.2 fl (7.5-11.1); MONO % 10.3 % (3.8-10.2); NEUT % 63.9 % (42.8-82.8); PLATELET COUNT 206 10^3/uL (134-434); RBC 4.53 M/mm3 (4.00-5.60); RDW 23.4 % (11.9-15.9); RETICULOCYTES 2.01 % (0.5-1.5)
[2022-10-17 09:30] LABS: POTASSIUM 3.8 mmol/L (3.5-5.1)
[2022-10-17 09:45] LABS: BLOOD UREA NITROGEN 35.2 mg/dL (7-18)
[2022-10-17 09:46] LABS: ALBUMIN 2.8 g/dl (3.4-5.0); CALCIUM 7.9 mg/dL (8.5-10.1)
[2022-10-17 09:47] LABS: ANISOCYTOSIS 2+; BILIRUBIN,TOTAL 0.9 mg/dL (0.2-1); MACROCYTOSIS 0; TOT PROT 8.4 g/dl (6.4-8.2)
[2022-10-17 09:49] LABS: CREATININE 1.6 mg/dL (0.55-1.3)
[2022-10-17] MEDS ORDERED: IRON SUCROSE INJECTION 200 MG in SODIUM CHLORIDE 90 ML IVPB ONE (10:00)
[2022-10-17] MEDS: APIXABAN 5 MG TABLET PO SCH ×2 (11:00→22:25)
[2022-10-17] MEDS: PANTOPRAZOLE 40 MG TABLET PO SCH (11:00)
[2022-10-17] MEDS: FUROSEMIDE 40 MG TABLET (FP) PO SCH ×2 (11:23→17:38)
[2022-10-17] MEDS: TRIAMCINOLONE ACET 0.1% CREAM 15 GM TUBE TP SCH ×2 (11:24→22:25)
[2022-10-17] MEDS: FLUTICASONE PROP 0.05% 16 GM NASAL SPRAY NS SCH (11:24)
[2022-10-17] MEDS: IRON SUCROSE INJECTION 200 MG in SODIUM CHLORIDE 90 ML IVPB ONE (11:26)
[2022-10-17] MEDS: ATORVASTATIN CA 80 MG TABLET (FP) PO SCH (22:25)
[2022-10-18] MEDS: LEVOTHYROXINE NA 50 MCG TABLET (FP) PO SCH (06:22)
[2022-10-18] MEDS: FUROSEMIDE 40 MG TABLET (FP) PO SCH (06:22)
[2022-10-18] MEDS ORDERED: FUROSEMIDE 40 MG TABLET (FP) PO SCH (08:04)
[2022-10-18 08:30] LABS: CARCINOEMBRYONIC ANTIGEN 2.4 ng/mL (0.0-4.7)
[2022-10-18] MEDS: IRON SUCROSE INJECTION 200 MG in SODIUM CHLORIDE 90 ML IVPB ONE (10:27)
[2022-10-18] MEDS: FLUTICASONE PROP 0.05% 16 GM NASAL SPRAY NS SCH (10:39)
[2022-10-18] MEDS: TRIAMCINOLONE ACET 0.1% CREAM 15 GM TUBE TP SCH ×2 (10:39→21:45)
[2022-10-18] MEDS: PANTOPRAZOLE 40 MG TABLET PO SCH (10:39)
[2022-10-18] MEDS: APIXABAN 5 MG TABLET PO SCH ×2 (10:39→21:45)
[2022-10-18] MEDS ORDERED: METOLAZONE 2.5 MG TABLET (FP) PO SCH (13:30)
[2022-10-18] MEDS: FUROSEMIDE 100 MG/10 ML INJECTABLE VIAL IVPB SCH (16:01)
[2022-10-18] MEDS: methylPREDNISolone NA SUCC 40 MG/1 ML VIAL IVPUSH SCH ×2 (17:48→21:45)
[2022-10-18] MEDS: PIPERACILLIN/TAZOB 3.375 GM 3.375 GM in DEXTROSE 5%-WATER - 50 ML IVPB SCH (17:50)
[2022-10-18 17:59] LABS: ARTERIAL BLD GAS O2 SATURATION 84.9 % (95-98); ARTERIAL BLOOD GAS BASE EXCESS 4.9 mmol/L (-2-2); ARTERIAL BLOOD GAS PO2 48.5 mmHg (80-100); ARTERIAL BLOOD GAS pH 7.428 (7.350-7.450)
[2022-10-18] MEDS ORDERED: PIPERACILLIN/TAZOB 3.375 GM 3.375 GM in DEXTROSE 5%-WATER - 50 ML IVPB SCH (18:00)
[2022-10-18 18:01] LABS: ALLENS TEST POSITIVE
[2022-10-18 18:08] LABS: GLIADIN ANTIBODY IGA 12 units (0-19); GLIADIN ANTIBODY IGG 3 units (0-19); TRANSGLUTAMINASE IGG 9 U/mL (0-5)
[2022-10-18] MEDS: ATORVASTATIN CA 80 MG TABLET (FP) PO SCH (21:45)
[2022-10-19] MEDS: methylPREDNISolone NA SUCC 40 MG/1 ML VIAL IVPUSH SCH ×4 (03:53→22:06)
[2022-10-19] MEDS: PIPERACILLIN/TAZOB 3.375 GM 3.375 GM in DEXTROSE 5%-WATER - 50 ML IVPB SCH ×2 (03:53→09:02)
[2022-10-19] MEDS: FUROSEMIDE 100 MG/10 ML INJECTABLE VIAL IVPB SCH (05:59)
[2022-10-19] MEDS: LEVOTHYROXINE NA 50 MCG TABLET (FP) PO SCH (05:59)
[2022-10-19 08:15] LABS: BASO % 0.4 % (0-2.0); HEMATOCRIT 32.3 % (35.4-49); HEMOGLOBIN 9.2 GM/dL (11.7-16.9); LYMPH % 13.5 % (8-40); MCH 20.3 pg (25.7-33.7); MCHC 28.5 g/dl (32.0-35.9); MEAN CELL VOLUME 71.3 fl (80-96); MEAN PLT VOLUME 8.8 fl (7.5-11.1); MONO % 0.8 % (3.8-10.2); NEUT % 85.3 % (42.8-82.8); PLATELET COUNT 218 10^3/uL (134-434); RBC 4.53 M/mm3 (4.00-5.60); RDW 23.6 % (11.9-15.9); WHITE BLOOD COUNT 6.2 K/mm3 (4.0-10.0)
[2022-10-19 08:35] LABS: POTASSIUM 4.1 mmol/L (3.5-5.1)
[2022-10-19 08:36] LABS: CALCIUM 8.2 mg/dL (8.5-10.1)
[2022-10-19 08:37] LABS: BLOOD UREA NITROGEN 46.9 mg/dL (7-18)
[2022-10-19 08:40] LABS: CREATININE 2.3 mg/dL (0.55-1.3)
[2022-10-19 08:42] LABS: BILIRUBIN,TOTAL 0.8 mg/dL (0.2-1)
[2022-10-19] MEDS: TRIAMCINOLONE ACET 0.1% CREAM 15 GM TUBE TP SCH ×2 (08:59→22:07)
[2022-10-19] MEDS: APIXABAN 5 MG TABLET PO SCH ×2 (09:01→22:06)
[2022-10-19] MEDS: PANTOPRAZOLE 40 MG TABLET PO SCH (09:01)
[2022-10-19] MEDS: FLUTICASONE PROP 0.05% 16 GM NASAL SPRAY NS SCH (09:02)
[2022-10-19] MEDS: ATORVASTATIN CA 80 MG TABLET (FP) PO SCH (22:06)
[2022-10-20] MEDS: methylPREDNISolone NA SUCC 40 MG/1 ML VIAL IVPUSH SCH ×3 (02:56→21:58)
[2022-10-20 05:29] LABS: ARTERIAL BLD GAS O2 SATURATION 50.1 % (95-98); ARTERIAL BLOOD GAS BASE EXCESS 2.9 mmol/L (-2-2); ARTERIAL BLOOD GAS pH 7.389 (7.350-7.450)
[2022-10-20 05:30] LABS: ARTERIAL BLOOD GAS PO2 27.5 mmHg (80-100)
[2022-10-20] MEDS: LEVOTHYROXINE NA 50 MCG TABLET (FP) PO SCH (06:03)
[2022-10-20] MEDS ORDERED: METOLAZONE 2.5 MG TABLET (FP) PO ONE (08:15)
[2022-10-20 08:38] LABS: POTASSIUM 3.9 mmol/L (3.5-5.1)
[2022-10-20 08:47] LABS: CALCIUM 8.4 mg/dL (8.5-10.1)
[2022-10-20 08:48] LABS: ALBUMIN 2.8 g/dl (3.4-5.0); BLOOD UREA NITROGEN 59.1 mg/dL (7-18)
[2022-10-20 08:51] LABS: CREATININE 2.6 mg/dL (0.55-1.3)
[2022-10-20 08:52] LABS: BILIRUBIN,TOTAL 0.7 mg/dL (0.2-1); TOT PROT 8.2 g/dl (6.4-8.2)
[2022-10-20] MEDS: PANTOPRAZOLE 40 MG TABLET PO SCH (09:30)
[2022-10-20] MEDS: APIXABAN 5 MG TABLET PO SCH ×2 (09:30→21:57)
[2022-10-20] MEDS: FUROSEMIDE 40 MG/4 ML INJECTABLE VIAL IVPB SCH (09:30)
[2022-10-20] MEDS ORDERED: ALBUTEROL SO4 0.083% IH SOL 2.5 MG/3 ML VIAL.NEB. NEB PRN (11:25)
[2022-10-20] MEDS: FLUTICASONE PROP 0.05% 16 GM NASAL SPRAY NS SCH (12:26)
[2022-10-20] MEDS: FLUTICASONE/UMECLIDIN/VILANTER(100-62.5-25 TRELEGY ELLIPTA) INAHLER IH SCH (12:26)
[2022-10-20] MEDS: TRIAMCINOLONE ACET 0.1% CREAM 15 GM TUBE TP SCH ×2 (12:27→22:11)
[2022-10-20] MEDS: ATORVASTATIN CA 80 MG TABLET (FP) PO SCH (21:56)
[2022-10-21] MEDS ORDERED: PIPERACILLIN/TAZOB 3.375 GM 3.375 GM in DEXTROSE 5%-WATER - 50 ML IVPB SCH (02:00)
[2022-10-21] MEDS: LEVOTHYROXINE NA 50 MCG TABLET (FP) PO SCH (06:10)
[2022-10-21 08:41] LABS: POTASSIUM 3.7 mmol/L (3.5-5.1)
[2022-10-21 08:47] LABS: ALBUMIN 2.8 g/dl (3.4-5.0); CALCIUM 8.4 mg/dL (8.5-10.1)
[2022-10-21 08:48] LABS: BLOOD UREA NITROGEN 72.9 mg/dL (7-18)
[2022-10-21 08:50] LABS: CREATININE 2.9 mg/dL (0.55-1.3)
[2022-10-21 08:51] LABS: BILIRUBIN,TOTAL 0.7 mg/dL (0.2-1)
[2022-10-21 08:52] LABS: TOT PROT 8.2 g/dl (6.4-8.2)
[2022-10-21] MEDS: FUROSEMIDE 40 MG/4 ML INJECTABLE VIAL IVPB SCH (09:41)
[2022-10-21] MEDS: APIXABAN 5 MG TABLET PO SCH ×2 (09:41→21:49)
[2022-10-21] MEDS: methylPREDNISolone NA SUCC 40 MG/1 ML VIAL IVPUSH SCH (09:42)
[2022-10-21] MEDS: PANTOPRAZOLE 40 MG TABLET PO SCH (09:42)
[2022-10-21] MEDS: TRIAMCINOLONE ACET 0.1% CREAM 15 GM TUBE TP SCH ×2 (09:47→22:34)
[2022-10-21] MEDS: FLUTICASONE PROP 0.05% 16 GM NASAL SPRAY NS SCH (09:47)
[2022-10-21] MEDS: FLUTICASONE/UMECLIDIN/VILANTER(100-62.5-25 TRELEGY ELLIPTA) INAHLER IH SCH (09:47)
[2022-10-21] MEDS: hydrALAZINE HCL 10 MG TABLET PO SCH ×2 (13:16→21:49)
[2022-10-21] MEDS: ISOSORBIDE DINITRATE 5 MG TABLET PO SCH ×2 (13:16→17:56)
[2022-10-21] MEDS: ATORVASTATIN CA 80 MG TABLET (FP) PO SCH (21:49)
[2022-10-22] MEDS: LEVOTHYROXINE NA 50 MCG TABLET (FP) PO SCH (06:22)
[2022-10-22] MEDS ORDERED: methylPREDNISolone NA SUCC 40 MG/1 ML VIAL IVPUSH SCH (10:00)
[2022-10-22] MEDS ORDERED: FUROSEMIDE 40 MG/4 ML INJECTABLE VIAL IVPB SCH (11:15)
[2022-10-22] MEDS: FLUTICASONE/UMECLIDIN/VILANTER(100-62.5-25 TRELEGY ELLIPTA) INAHLER IH SCH (11:51)
[2022-10-22] MEDS: FLUTICASONE PROP 0.05% 16 GM NASAL SPRAY NS SCH (11:51)
[2022-10-22] MEDS: PANTOPRAZOLE 40 MG TABLET PO SCH (11:51)
[2022-10-22] MEDS: hydrALAZINE HCL 10 MG TABLET PO SCH (11:51)
[2022-10-22] MEDS: ISOSORBIDE DINITRATE 5 MG TABLET PO SCH (11:51)
[2022-10-22] MEDS: TRIAMCINOLONE ACET 0.1% CREAM 15 GM TUBE TP SCH ×2 (11:52→21:36)
[2022-10-22] MEDS: APIXABAN 5 MG TABLET PO SCH ×2 (11:52→21:33)
[2022-10-22] MEDS: FUROSEMIDE 40 MG/4 ML INJECTABLE VIAL IVPB SCH (12:05)
[2022-10-22 12:19] LABS: HEMATOCRIT 29.4 % (35.4-49); LYMPH % 6.2 % (8-40); MCH 21.7 pg (25.7-33.7); MCHC 30.5 g/dl (32.0-35.9); MEAN CELL VOLUME 71.1 fl (80-96); MEAN PLT VOLUME 7.7 fl (7.5-11.1); MONO % 7.3 % (3.8-10.2); NEUT % 86.5 % (42.8-82.8); PLATELET COUNT 213 10^3/uL (134-434); RBC 4.13 M/mm3 (4.00-5.60); RDW 23.2 % (11.9-15.9); WHITE BLOOD COUNT 9.7 K/mm3 (4.0-10.0)
[2022-10-22] MEDS ORDERED: FUROSEMIDE 40 MG/4 ML INJECTABLE VIAL IVPB ONE (12:39)
[2022-10-22 12:45] LABS: ANISOCYTOSIS 3+; MACROCYTOSIS 0
[2022-10-22 13:01] LABS: POTASSIUM 3.5 mmol/L (3.5-5.1)
[2022-10-22 13:04] LABS: BLOOD UREA NITROGEN 78.4 mg/dL (7-18); CALCIUM 8.2 mg/dL (8.5-10.1)
[2022-10-22 13:07] LABS: CREATININE 3.1 mg/dL (0.55-1.3)
[2022-10-22 13:09] LABS: TOT PROT 8.2 g/dl (6.4-8.2)
[2022-10-22 13:10] LABS: BILIRUBIN,TOTAL 0.7 mg/dL (0.2-1)
[2022-10-22] MEDS: FUROSEMIDE INJECTION 100 MG in SODIUM CHLORIDE 40 ML IVPB SCH (15:19)
[2022-10-22] MEDS: ATORVASTATIN CA 80 MG TABLET (FP) PO SCH (21:33)
[2022-10-23] MEDS: FUROSEMIDE INJECTION 100 MG in SODIUM CHLORIDE 40 ML IVPB SCH ×3 (05:05→19:30)
[2022-10-23] MEDS: LEVOTHYROXINE NA 50 MCG TABLET (FP) PO SCH (06:08)
[2022-10-23] MEDS: APIXABAN 5 MG TABLET PO SCH ×2 (10:18→22:43)
[2022-10-23] MEDS: PANTOPRAZOLE 40 MG TABLET PO SCH (10:18)
[2022-10-23] MEDS: FLUTICASONE PROP 0.05% 16 GM NASAL SPRAY NS SCH (10:19)
[2022-10-23] MEDS: TRIAMCINOLONE ACET 0.1% CREAM 15 GM TUBE TP SCH ×2 (10:19→22:44)
[2022-10-23] MEDS: FLUTICASONE/UMECLIDIN/VILANTER(100-62.5-25 TRELEGY ELLIPTA) INAHLER IH SCH (10:24)
[2022-10-23 11:57] LABS: BASO % 0.3 % (0-2.0); EOS % 0.8 % (0-4.5); HEMATOCRIT 30.1 % (35.4-49); HEMOGLOBIN 9.4 GM/dL (11.7-16.9); LYMPH % 12.6 % (8-40); MCH 21.8 pg (25.7-33.7); MCHC 31.3 g/dl (32.0-35.9); MEAN CELL VOLUME 69.8 fl (80-96); MEAN PLT VOLUME 8.2 fl (7.5-11.1); MONO % 7.3 % (3.8-10.2); PLATELET COUNT 187 10^3/uL (134-434); RBC 4.31 M/mm3 (4.00-5.60); RDW 23.8 % (11.9-15.9); WHITE BLOOD COUNT 7.1 K/mm3 (4.0-10.0)
[2022-10-23 12:20] LABS: POTASSIUM 3.2 mmol/L (3.5-5.1)
[2022-10-23 12:29] LABS: BLOOD UREA NITROGEN 79.6 mg/dL (7-18); CALCIUM 8.3 mg/dL (8.5-10.1)
[2022-10-23 12:33] LABS: CREATININE 2.6 mg/dL (0.55-1.3)
[2022-10-23 12:34] LABS: BILIRUBIN,TOTAL 0.8 mg/dL (0.2-1); TOT PROT 7.9 g/dl (6.4-8.2)
[2022-10-23] MEDS ORDERED: POTASSIUM CHLORIDE ORAL LIQUID 20 MEQ/15 ML PO ONE (13:54)
[2022-10-23] MEDS: KCL 10 MEQ IVPB 10 MEQ/100 ML INFUS.BAG IVPB SCH ×3 (14:32→18:21)
[2022-10-23] MEDS: ATORVASTATIN CA 80 MG TABLET (FP) PO SCH (22:44)
[2022-10-24] MEDS: LEVOTHYROXINE NA 50 MCG TABLET (FP) PO SCH (06:08)
[2022-10-24 09:22] LABS: POTASSIUM 5.9 mmol/L (3.5-5.1)
[2022-10-24 09:53] LABS: ALBUMIN 2.9 g/dl (3.4-5.0)
[2022-10-24 09:56] LABS: CREATININE 2.1 mg/dL (0.55-1.3); TOT PROT 8.1 g/dl (6.4-8.2)
[2022-10-24 10:02] LABS: CALCIUM 8.5 mg/dL (8.5-10.1)
[2022-10-24] MEDS: PANTOPRAZOLE 40 MG TABLET PO SCH (10:07)
[2022-10-24] MEDS: APIXABAN 5 MG TABLET PO SCH ×2 (10:07→22:03)
[2022-10-24] MEDS: TRIAMCINOLONE ACET 0.1% CREAM 15 GM TUBE TP SCH ×2 (10:08→22:03)
[2022-10-24] MEDS: FLUTICASONE PROP 0.05% 16 GM NASAL SPRAY NS SCH (10:08)
[2022-10-24] MEDS: FLUTICASONE/UMECLIDIN/VILANTER(100-62.5-25 TRELEGY ELLIPTA) INAHLER IH SCH (10:08)
[2022-10-24 12:15] LABS: POTASSIUM 3.6 mmol/L (3.5-5.1)
[2022-10-24 12:16] LABS: CALCIUM 8.7 mg/dL (8.5-10.1)
[2022-10-24 12:17] LABS: BLOOD UREA NITROGEN 63.4 mg/dL (7-18)
[2022-10-24] MEDS: FUROSEMIDE INJECTION 100 MG in SODIUM CHLORIDE 40 ML IVPB SCH (22:01)
[2022-10-24] MEDS: ATORVASTATIN CA 80 MG TABLET (FP) PO SCH (22:03)
[2022-10-25] MEDS: FUROSEMIDE INJECTION 100 MG in SODIUM CHLORIDE 40 ML IVPB SCH ×2 (02:34→14:49)
[2022-10-25] MEDS: LEVOTHYROXINE NA 50 MCG TABLET (FP) PO SCH (06:14)
[2022-10-25 09:23] LABS: BASO % 0.2 % (0-2.0); EOS % 3.4 % (0-4.5); HEMATOCRIT 29.4 % (35.4-49); HEMOGLOBIN 9.1 GM/dL (11.7-16.9); LYMPH % 11.6 % (8-40); MCH 21.5 pg (25.7-33.7); MCHC 30.8 g/dl (32.0-35.9); MEAN CELL VOLUME 69.8 fl (80-96); MEAN PLT VOLUME 8.2 fl (7.5-11.1); NEUT % 72.8 % (42.8-82.8); PLATELET COUNT 186 10^3/uL (134-434); RBC 4.22 M/mm3 (4.00-5.60); RDW 24.3 % (11.9-15.9); WHITE BLOOD COUNT 7.7 K/mm3 (4.0-10.0)
[2022-10-25 09:34] LABS: POTASSIUM 3.3 mmol/L (3.5-5.1)
[2022-10-25 09:36] LABS: CALCIUM 8.6 mg/dL (8.5-10.1)
[2022-10-25 09:37] LABS: ALBUMIN 2.9 g/dl (3.4-5.0); BLOOD UREA NITROGEN 51.4 mg/dL (7-18)
[2022-10-25 09:40] LABS: CREATININE 1.7 mg/dL (0.55-1.3)
[2022-10-25 09:41] LABS: BILIRUBIN,TOTAL 1.3 mg/dL (0.2-1)
[2022-10-25 09:42] LABS: TOT PROT 7.5 g/dl (6.4-8.2)
[2022-10-25] MEDS: PANTOPRAZOLE 40 MG TABLET PO SCH (09:48)
[2022-10-25] MEDS: APIXABAN 5 MG TABLET PO SCH ×3 (09:48→22:31)
[2022-10-25] MEDS: TRIAMCINOLONE ACET 0.1% CREAM 15 GM TUBE TP SCH ×2 (09:49→22:21)
[2022-10-25] MEDS: FLUTICASONE/UMECLIDIN/VILANTER(100-62.5-25 TRELEGY ELLIPTA) INAHLER IH SCH (09:49)
[2022-10-25] MEDS: FLUTICASONE PROP 0.05% 16 GM NASAL SPRAY NS SCH (09:49)
[2022-10-25] MEDS ORDERED: POTASSIUM CHLORIDE ORAL LIQUID 20 MEQ/15 ML PO ONE ×2 (10:08→16:30)
[2022-10-25] MEDS: KCL 10 MEQ IVPB 10 MEQ/100 ML INFUS.BAG IVPB SCH ×3 (10:55→16:59)
[2022-10-25] MEDS: ATORVASTATIN CA 80 MG TABLET (FP) PO SCH (22:21)
[2022-10-26] MEDS: LEVOTHYROXINE NA 50 MCG TABLET (FP) PO SCH (06:32)
[2022-10-26] MEDS: FUROSEMIDE INJECTION 100 MG in SODIUM CHLORIDE 40 ML IVPB SCH ×2 (06:34→18:04)
[2022-10-26 09:02] LABS: POTASSIUM 3.8 mmol/L (3.5-5.1)
[2022-10-26 09:07] LABS: BLOOD UREA NITROGEN 40.5 mg/dL (7-18)
[2022-10-26 09:10] LABS: CREATININE 1.6 mg/dL (0.55-1.3)
[2022-10-26 09:12] LABS: BILIRUBIN,TOTAL 1.6 mg/dL (0.2-1); TOT PROT 7.9 g/dl (6.4-8.2)
[2022-10-26] MEDS: APIXABAN 5 MG TABLET PO SCH ×2 (10:32→22:40)
[2022-10-26] MEDS: FLUTICASONE/UMECLIDIN/VILANTER(100-62.5-25 TRELEGY ELLIPTA) INAHLER IH SCH (10:32)
[2022-10-26] MEDS: FLUTICASONE PROP 0.05% 16 GM NASAL SPRAY NS SCH (10:32)
[2022-10-26] MEDS: PANTOPRAZOLE 40 MG TABLET PO SCH (10:32)
[2022-10-26] MEDS: TRIAMCINOLONE ACET 0.1% CREAM 15 GM TUBE TP SCH ×2 (10:33→22:40)
[2022-10-26] MEDS ORDERED: FUROSEMIDE INJECTION 100 MG in SODIUM CHLORIDE 40 ML IVPB SCH (14:31)
[2022-10-26] MEDS: ATORVASTATIN CA 80 MG TABLET (FP) PO SCH (22:41)
[2022-10-27 03:10] VITALS: RESP 20
[2022-10-27] MEDS: LEVOTHYROXINE NA 50 MCG TABLET (FP) PO SCH (06:45)
[2022-10-27] MEDS: TRIAMCINOLONE ACET 0.1% CREAM 15 GM TUBE TP SCH ×2 (09:40→22:36)
[2022-10-27] MEDS: FLUTICASONE PROP 0.05% 16 GM NASAL SPRAY NS SCH (09:40)
[2022-10-27] MEDS: APIXABAN 5 MG TABLET PO SCH ×2 (09:40→22:38)
[2022-10-27] MEDS: PANTOPRAZOLE 40 MG TABLET PO SCH (09:40)
[2022-10-27] MEDS: FLUTICASONE/UMECLIDIN/VILANTER(100-62.5-25 TRELEGY ELLIPTA) INAHLER IH SCH (09:40)
[2022-10-27] MEDS: ATORVASTATIN CA 80 MG TABLET (FP) PO SCH (22:38)
[2022-10-28] MEDS: LEVOTHYROXINE NA 50 MCG TABLET (FP) PO SCH (06:27)
[2022-10-28] MEDS ORDERED: FUROSEMIDE 40 MG/4 ML INJECTABLE VIAL IVPB SCH (10:00)
[2022-10-28] MEDS: PANTOPRAZOLE 40 MG TABLET PO SCH (10:08)
[2022-10-28] MEDS: TRIAMCINOLONE ACET 0.1% CREAM 15 GM TUBE TP SCH (10:08)
[2022-10-28] MEDS: FLUTICASONE/UMECLIDIN/VILANTER(100-62.5-25 TRELEGY ELLIPTA) INAHLER IH SCH (10:08)
[2022-10-28] MEDS: FLUTICASONE PROP 0.05% 16 GM NASAL SPRAY NS SCH (10:08)
[2022-10-28] MEDS: APIXABAN 5 MG TABLET PO SCH (10:08)
[2022-10-28 11:41] VITALS: BP 125/61; PULSE 94; TEMP 98.4
== END 2022-10-28 13:45 | disposition home or self-care (01) | DRG 291 ==
LOC: JER 14:15 → JERBED 17:03 → J4W 19:37
PROVIDERS: ADMIT Internal Medicine; ATTEND Family Medicine
DX: I13.0 Hypertensive heart and chronic kidney disease with heart failure and stage 1 through stage 4 chronic kidney disease, or unspecified chronic kidney disease (principal); I50.43 Acute on chronic combined systolic (congestive) and diastolic (congestive) heart failure; J96.21 Acute and chronic respiratory failure with hypoxia; J96.22 Acute and chronic respiratory failure with hypercapnia; Z68.41 Body mass index [BMI] 40.0-44.9, adult; J98.11 Atelectasis; J90 Pleural effusion, not elsewhere classified; N17.9 Acute kidney failure, unspecified; J84.9 Interstitial pulmonary disease, unspecified; I31.39 Other pericardial effusion (noninflammatory); E66.2 Morbid (severe) obesity with alveolar hypoventilation; I31.9 Disease of pericardium, unspecified; I25.10 Atherosclerotic heart disease of native coronary artery without angina pectoris; I48.91 Unspecified atrial fibrillation; E11.9 Type 2 diabetes mellitus without complications; D64.9 Anemia, unspecified; J44.9 Chronic obstructive pulmonary disease, unspecified; E03.9 Hypothyroidism, unspecified; I27.81 Cor pulmonale (chronic); D50.9 Iron deficiency anemia, unspecified; N18.9 Chronic kidney disease, unspecified; I27.20 Pulmonary hypertension, unspecified; Z95.5 Presence of coronary angioplasty implant and graft; E78.5 Hyperlipidemia, unspecified; E87.70 Fluid overload, unspecified; E87.6 Hypokalemia; I34.0 Nonrheumatic mitral (valve) insufficiency
CPT/HCPCS: 0241U-QW; 36415; 36600; 71045-TC-FY; 71250-TC; 76775-TC; 76856-TC; 80048; 80053; 81003; 82378; 82570; 82728; 82784; 82803; 83036; 83516; 83540; 83550; 83615; 83735; 83880; 84100; 84155; 84156; 84165; 84439; 84443; 84466; 84484; 85025; 85045; 85610; 85730; 86140; 86334; 87040; 93005; 93010; 93306-TC; 94660; 97116-GP; 97162-GP; 99285-25; J1250; J1756